=== PATIENT | male | born 1945 | race Caucasian/White ===

== ENCOUNTER 2021-09-17 16:03 | Inpatient (IN) | payer OTHER ==
[~2021-09-17] VITALS: Ht 170.2 cm; Wt 109.5 kg
[~2021-09-17 16:03] MED LIST: ASPI325; ATEN25; CHRO200; FISH1000; GEMF600; GLIP10; LISI20; METF500; MULVITMIND; VERA240ERA
[2021-09-17] MEDS ORDERED: ALBU90OI INH (17:32)
[2021-09-17] MEDS ORDERED: THERA-D2000 UNIT PO (17:33)
[2021-09-17] MEDS ORDERED: B-121000 MC3 PO (17:33)
[2021-09-17] MEDS ORDERED: HYDCHL25 PO (17:34)
[2021-09-17] MEDS ORDERED: NOVOLOG FL100 UNIT/3 SC (17:35)
[2021-09-17] MEDS ORDERED: NOVOLIN N100 UNIT/2 SC (17:36)
[2021-09-17] MEDS ORDERED: LEVSOD25 PO (17:37)
[2021-09-17] MEDS ORDERED: Prinivil10 MG PO (17:37)
[2021-09-17] MEDS ORDERED: METF500 PO (17:38)
[2021-09-17] MEDS ORDERED: ROSU10TA PO (17:41)
[2021-09-17] MEDS ORDERED: STIOLTO RESPIMAT4 G1 PO (17:42)
[2021-09-17] MEDS ORDERED: VERA180ERB PO (17:43)
[2021-09-17] MEDS ORDERED: ASPI325 PO (17:45)
[2021-09-17 18:50] LABS: BASOPHILS ABSOLUTE AUTO 0.04 K/mm3 (0.00-0.23); BASOPHILS PERCENT AUTO 1 % (0-2); EOSINOPHILS ABSOLUTE AUTO 0.32 K/mm3 (0.00-0.68); EOSINOPHILS PERCENT AUTO 4 % (0-6); Hematocrit 26.7 % (37.0-53.0); Hemoglobin 7.4 g/dL (13.5-17.5); IMMATURE GRAN ABSOLUTE AUTO 0.04 K/mm3 (0.00-0.10); IMMATURE GRAN PERCENT AUTO 1 % (0-1); LYMPHOCYTES ABSOLUTE AUTO 1.14 K/mm3 (0.84-5.20); LYMPHOCYTES PERCENT AUTO 14 % (21-46); MONOCYTES ABSOLUTE AUTO 0.53 K/mm3 (0.16-1.47); MONOCYTES PERCENT AUTO 6 % (4-13); Mean Corpuscular HGB 21.9 pg (26.0-34.0); Mean Corpuscular HGB Conc 27.7 g/dL (31.5-36.5); Mean Corpuscular Volume 79 fL (80-100); Mean Platelet Volume 9.5 fL (9.1-12.4); NEUTROPHILS PERCENT AUTO 75 % (41-73); NRBC ABSOLUTE 0.02 K/mm3 (0.00-0.02); NRBC Auto 0.2 /100 WBC (0.0-0.2); Platelet Count 256 K/mm3 (150-400); RDW Coefficient Variation 21.2 % (11.7-14.2); RDW Standard Deviation 60.8 fL (35.1-46.3); Red Blood Cell Count 3.38 M/mm3 (4.30-5.90); White Blood Cell Count 8.27 K/mm3 (4.00-11.30)
[2021-09-17 18:59] LABS: Alanine Aminotransfer (ALT/SGP 30 U/L (12-78); Albumin, Blood 3.4 g/dL (3.4-5.0); Albumin/Globulin Ratio 0.9 (0.8-1.8); Alk Phos 69 U/L (50-136); Anion Gap 1 mmol/L (6-16); Aspartate Aminotrans (AST/SGOT 32 U/L (12-37); Bilirubin, Total 0.6 mg/dL (0.1-1.0); Blood Urea Nitrogen 14 mg/dL (8-24); CO2, Blood 34 mmol/L (21-32); Calcium, Blood 8.9 mg/dL (8.5-10.1); Chloride, Blood 103 mmol/L (98-108); Creatinine, Blood 0.78 mg/dL (0.60-1.20); Globulin, Blood 3.6 g/dL (2.2-4.0); Glomerular Filtration Rate >60 (60-); Glucose, Blood 124 mg/dL (70-99); Potassium, Blood 4.7 mmol/L (3.5-5.5); Sodium, Blood 138 mmol/L (136-145); Troponin I <0.015 ng/mL (0.000-0.040)
[2021-09-18 00:10] LABS: Ferritin, Serum 12 ng/mL (26-388); Iron Serum 28 ug/dL (65-175); Percent Saturation 6.4 % (20.0-50.0); Total Iron Binding Capacity 439 ug/dL (250-450)
[2021-09-18 05:16] LABS: BASOPHILS ABSOLUTE AUTO 0.07 K/mm3 (0.00-0.23); BASOPHILS PERCENT AUTO 1 % (0-2); EOSINOPHILS ABSOLUTE AUTO 0.47 K/mm3 (0.00-0.68); EOSINOPHILS PERCENT AUTO 4 % (0-6); Hematocrit 27.1 % (37.0-53.0); Hemoglobin 7.7 g/dL (13.5-17.5); IMMATURE GRAN ABSOLUTE AUTO 0.04 K/mm3 (0.00-0.10); IMMATURE GRAN PERCENT AUTO 0 % (0-1); LYMPHOCYTES ABSOLUTE AUTO 1.19 K/mm3 (0.84-5.20); LYMPHOCYTES PERCENT AUTO 11 % (21-46); MONOCYTES ABSOLUTE AUTO 0.77 K/mm3 (0.16-1.47); MONOCYTES PERCENT AUTO 7 % (4-13); Mean Corpuscular HGB 22.3 pg (26.0-34.0); Mean Corpuscular HGB Conc 28.4 g/dL (31.5-36.5); Mean Corpuscular Volume 79 fL (80-100); NEUTROPHILS ABSOLUTE AUTO 8.44 K/mm3 (1.96-9.15); NEUTROPHILS PERCENT AUTO 77 % (41-73); NRBC ABSOLUTE 0.05 K/mm3 (0.00-0.02); NRBC Auto 0.5 /100 WBC (0.0-0.2); Platelet Count 254 K/mm3 (150-400); RDW Coefficient Variation 21.1 % (11.7-14.2); RDW Standard Deviation 59.6 fL (35.1-46.3); Red Blood Cell Count 3.45 M/mm3 (4.30-5.90); White Blood Cell Count 10.98 K/mm3 (4.00-11.30)
[2021-09-18 06:33] LABS: Anion Gap 5 mmol/L (6-16); Blood Urea Nitrogen 17 mg/dL (8-24); Bun/Creatinine Ratio 16.2 (12.0-20.0); CO2, Blood 35 mmol/L (21-32); Calcium, Blood 8.8 mg/dL (8.5-10.1); Chloride, Blood 98 mmol/L (98-108); Creatinine, Blood 1.05 mg/dL (0.60-1.20); Glomerular Filtration Rate >60 (60-); Glucose, Blood 132 mg/dL (70-99); Potassium, Blood 4.8 mmol/L (3.5-5.5); Sodium, Blood 138 mmol/L (136-145)
--- NOTE | 2021-09-18 12:30 | NUR ---
Echocardiogram completed.
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
--- NOTE | 2021-09-18 18:32 | NUR ---
SHIFT SUMMARY: NO ACUTE CHANGES. PATIENT SITTING ON EDGE OF BED. REMAINS IN SINUS RHYTHM WITH HR IN THE 70'S. SOB WITH EXERTION AND MOVEMENT. DENIES NEEDS/PAINS. VITAL SIGNS REMAIN STABLE. PLAN TO DC TOMORROW. CALL LIGHT IN REACH.
--- NOTE | 2021-09-18 21:43 | NUR ---
ASSUMED CARE OF PATIENT AT APPROXIMATELY 1910 FROM MARIANNE Viera RN. PATIENT ALERT AND ORIENTED X4; SITTING ON SIDE OF BED DURING BEDSIDE REPORT; INDEPENDENT IN ROOM PER REPORT. PATIENT DENIES PAIN, NUMBNESS, TINGLING, DIZZINESS AND NAUSEA. SR ON TELE; OXYGEN SATURATION ABOVE 90% ON ROOM AIR. DIURESING PATIENT; USES URINAL BEDSIDE. PATIENT REPORTS FEET FELT TIGHT BUT FEELING BETTER. PATIENT ALSO REPORT ABDOMEN NOT USUALLY THIS FIRM. PIV S/L.
--- NOTE | 2021-09-19 06:18 | NUR ---
PATIENT SLEPT A FEW HOURS LAST NIGHT; SITTING UP ON THE SIDE OF THE BED MOST OF THE NIGHT; REFUSED RECLINER. PATIENT STATES HE CANNOT LAY FLAT FOR LONG. NO OTHER ACUTE CHANGES. PATIENT WEIGHED ON STANDING SCALE. NO OTHER ACUTE CHANGES.
--- NOTE | 2021-09-19 08:25 | NUR ---
PATIENT ALERT AND ORIENTED X4. NEURO WNL. TELE SHOWING SINUS RHYTHM WITH HR 80-90'S. DENIES CHEST PAIN. ON ROOM AIR. SOB WHEN LAYNIG DOWN. MODERATE EDEMA BILATERAL LOWER LEGS. DENIES OVERALL PAIN. ABDOMEN DISTENDED AND FIRM. USING URINAL. STRICT I AND O. DR. BENJAMIN IN THIS AM TO SEE PATIENT. NEW ORDERS FOR LASIX. EATING WELL. CALL LIGHT IN REACH.
[2021-09-19] MEDS ORDERED: POTA10T PO (09:58)
[2021-09-19] MEDS ORDERED: PROBIOTIC1 EA13 PO (09:59)
[2021-09-19] MEDS ORDERED: AZIT250 PO (10:04)
[2021-09-19] MEDS ORDERED: AMOX-CLAV ER 11 EAC1 PO (10:06)
[2021-09-19] MEDS ORDERED: FURO20 PO (10:07)
[2021-09-19] MEDS ORDERED: TRAZ50 PO (10:09)
[2021-09-19] MEDS ORDERED: XARELTO20 MG PO (10:10)
[2021-09-19] MEDS ORDERED: METO50 PO (10:12)
[2021-09-19] MEDS ORDERED: FERSU300 PO (10:13)
--- NOTE | 2021-09-19 12:07 | NUR ---
DISCHARGE: NO ACUTE CHANGES. PATIENT VITAL SIGNS STABLE. DR. BENJAMIN IN TO SEE PATIENT THIS AM. PO LASIX DOSE GIVEN. DISCHARGE INSTRUCTIONS REVIEWED AND QUESTIONS ANSWERED. ALL NEW MEDICATIONS REVIEWED. DISCHARGE WNL. PATIENT LEFT UNIT VIA WHEELCHAIR WITH ALL PERSONAL BELONGINGS.
== END 2021-09-19 11:39 | disposition home or self-care (01) | DRG 308 ==
LOC: ER 16:03 → ERHOLD 23:39 → ER 23:39 → PCU 09-18 11:02
PROVIDERS: Emergency Medicine; ADMIT Internal Medicine
DX: I48.91 Unspecified atrial fibrillation (principal); J18.9 Pneumonia, unspecified organism; I50.32 Chronic diastolic (congestive) heart failure; J44.9 Chronic obstructive pulmonary disease, unspecified; E03.9 Hypothyroidism, unspecified; E11.9 Type 2 diabetes mellitus without complications; E78.5 Hyperlipidemia, unspecified; I25.10 Atherosclerotic heart disease of native coronary artery without angina pectoris; E53.8 Deficiency of other specified B group vitamins; Z88.8 Allergy status to other drugs, medicaments and biological substances; I25.2 Old myocardial infarction; D63.8 Anemia in other chronic diseases classified elsewhere; Z79.82 Long term (current) use of aspirin; Z79.4 Long term (current) use of insulin; Z79.899 Other long term (current) drug therapy; E16.2 Hypoglycemia, unspecified; I11.0 Hypertensive heart disease with heart failure
CPT/HCPCS: 36415; 71045; 71260; 80048; 80053; 82607; 82728; 82947; 83540; 83550; 83880; 84145; 84443; 84484; 85025; 85379; 93005; 93010; 93306; 94640; 94760; 96374; 96375; 96376; 99285-25; A9270; J1815; J1940; Q9967

== ENCOUNTER 2021-09-30 11:17 | Inpatient (IN) | payer OTHER ==
[~2021-09-30] VITALS: Ht 177.8 cm; Wt 111.3 kg
[~2021-09-30 11:17] MED LIST changes: +ALBU90OI INH; +AMOX-CLAV ER 11 EAC1 PO; +ASPI325 PO; +AZIT250 PO; +B-121000 MC3 PO; +FERSU300 PO; +FURO20 PO; +HYDCHL25 PO; +LEVSOD25 PO; +METF500 PO; +METO50 PO; +NOVOLIN N100 UNIT/2 SC; +NOVOLOG FL100 UNIT/3 SC; +POTA10T PO; +PROBIOTIC1 EA13 PO; +Prinivil10 MG PO; +ROSU10TA PO; +STIOLTO RESPIMAT4 G1 PO; +THERA-D2000 UNIT PO; +TRAZ50 PO; +VERA180ERB PO; +XARELTO20 MG PO
[2021-09-30 11:48] LABS: BASOPHILS ABSOLUTE AUTO 0.05 K/mm3 (0.00-0.23); BASOPHILS PERCENT AUTO 1 % (0-2); EOSINOPHILS ABSOLUTE AUTO 0.32 K/mm3 (0.00-0.68); EOSINOPHILS PERCENT AUTO 4 % (0-6); Hematocrit 24.4 % (37.0-53.0); Hemoglobin 6.7 g/dL (13.5-17.5); IMMATURE GRAN ABSOLUTE AUTO 0.04 K/mm3 (0.00-0.10); IMMATURE GRAN PERCENT AUTO 1 % (0-1); LYMPHOCYTES ABSOLUTE AUTO 1.09 K/mm3 (0.84-5.20); LYMPHOCYTES PERCENT AUTO 13 % (21-46); MONOCYTES ABSOLUTE AUTO 0.47 K/mm3 (0.16-1.47); MONOCYTES PERCENT AUTO 5 % (4-13); Mean Corpuscular HGB 23.6 pg (26.0-34.0); Mean Corpuscular HGB Conc 27.5 g/dL (31.5-36.5); Mean Corpuscular Volume 86 fL (80-100); Mean Platelet Volume 9.6 fL (9.1-12.4); NEUTROPHILS ABSOLUTE AUTO 6.66 K/mm3 (1.96-9.15); NEUTROPHILS PERCENT AUTO 77 % (41-73); NRBC ABSOLUTE 0.03 K/mm3 (0.00-0.02); NRBC Auto 0.3 /100 WBC (0.0-0.2); Platelet Count 237 K/mm3 (150-400); RDW Coefficient Variation 27.8 % (11.7-14.2); Red Blood Cell Count 2.84 M/mm3 (4.30-5.90); White Blood Cell Count 8.63 K/mm3 (4.00-11.30)
[2021-09-30 11:58] LABS: Alanine Aminotransfer (ALT/SGP 30 U/L (12-78); Albumin/Globulin Ratio 0.9 (0.8-1.8); Alk Phos 60 U/L (50-136); Anion Gap 3 mmol/L (6-16); Aspartate Aminotrans (AST/SGOT 26 U/L (12-37); Bilirubin, Total 0.6 mg/dL (0.1-1.0); Blood Urea Nitrogen 26 mg/dL (8-24); Bun/Creatinine Ratio 28.9 (12.0-20.0); CO2, Blood 32 mmol/L (21-32); Calcium, Blood 8.8 mg/dL (8.5-10.1); Chloride, Blood 105 mmol/L (98-108); Globulin, Blood 3.4 g/dL (2.2-4.0); Glomerular Filtration Rate >60 (60-); Glucose, Blood 113 mg/dL (70-99); Potassium, Blood 4.6 mmol/L (3.5-5.5); Sodium, Blood 140 mmol/L (136-145); Total Protein, Blood 6.4 g/dL (6.4-8.2); Troponin I 0.054 ng/mL (0.000-0.040)
--- NOTE | 2021-09-30 18:54 | NUR ---
SHIFT SUMMARY: ASSUMED CARE OF PT AT 1842. REPORT RECEIVED FROM MARK CASAS. PT ARRIVED TO ROOM WITH PRBC'S FINISHED INFUSING 270CC. PT A/O STANDBY ASSIST, PLEASANT AND COOPERATIVE. NO S/S OF DISTRESS. ABLE TO ANSWER QUESTIONS. NO S/S OF SOB. PT ORIENTED TO ROOM, CALL LIGHT. BED IN LOW POSITION AND BED ALARM ON.
[2021-10-01 05:14] LABS: Hematocrit 28.2 % (37.0-53.0); Hemoglobin 8.2 g/dL (13.5-17.5); Mean Corpuscular HGB 24.6 pg (26.0-34.0); Mean Corpuscular HGB Conc 29.1 g/dL (31.5-36.5); Mean Corpuscular Volume 84 fL (80-100); Mean Platelet Volume 9.1 fL (9.1-12.4); NRBC ABSOLUTE 0.02 K/mm3 (0.00-0.02); NRBC Auto 0.2 /100 WBC (0.0-0.2); Platelet Count 211 K/mm3 (150-400); RDW Coefficient Variation 25.5 % (11.7-14.2); RDW Standard Deviation 76.2 fL (35.1-46.3); Red Blood Cell Count 3.34 M/mm3 (4.30-5.90); White Blood Cell Count 8.84 K/mm3 (4.00-11.30)
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
[2021-10-01 06:11] LABS: Anion Gap 8 mmol/L (6-16); Blood Urea Nitrogen 20 mg/dL (8-24); Bun/Creatinine Ratio 24.3 (12.0-20.0); CO2, Blood 29 mmol/L (21-32); Calcium, Blood 8.4 mg/dL (8.5-10.1); Chloride, Blood 103 mmol/L (98-108); Creatinine, Blood 0.82 mg/dL (0.60-1.20); Glomerular Filtration Rate >60 (60-); Glucose, Blood 143 mg/dL (70-99); Potassium, Blood 4.2 mmol/L (3.5-5.5); Sodium, Blood 140 mmol/L (136-145)
[2021-10-01] MEDS ORDERED: ASCO500 PO (08:45)
[2021-10-01] MEDS ORDERED: CALCIUM 500 MG1 EAC2 PO (08:46)
[2021-10-01] MEDS ORDERED: FISH OIL PO (08:47)
[2021-10-01] MEDS ORDERED: HUMULIN N100 UNIT/3 SC ×2 (08:51→08:52)
[2021-10-01] MEDS ORDERED: MULVITA PO (08:53)
--- NOTE | 2021-10-01 09:13 | NUR ---
PT HEART RATE HAS SUSTAINED 130S PER TELETECH YUE. CALLED DR TWICE WITH NO ANSWER. WILL TRY AGAIN IN TEN MIN.
--- NOTE | 2021-10-01 16:14 | NUR ---
SHIFT SUMMARY PATIENT IS ALERT AND ORIENTED X4. PATIENT IS ABLE TO MAKE NEEDS KNOWN. THIS RN CALLED IN A SURGICAL CONSULT FOR ABDOMEN WOUND THAT IS SLOWLY OOZING BLOODY EXUDENT. DRESSING FOR WOUND HAS BEEN CHANGED ONCE THIS SHIFT. PATIENT HAS HAD HEART RATE ELEVATED MOST OF SHIFT. PATIENT HAS HAD HOME MEDICATIONS ADDED AND PATIENTS HR HAS EVENED OUT. NO ACUTE EVENTS THIS SHIFT. CALL LIGHT IN PLACE. WILL MONITOR UNTIL SHIFT CHANGE.
--- NOTE | 2021-10-02 04:04 | NUR ---
SHIFT SUMMARY PTIS AA0X4. FULL CODE STATUS. ATTHE BEGINNING OF THE SHIFT. PT WAS AFIB @120HR PER ADVERTISING INSERTER. WAS NOTIFIED. METOPROLOL WAS ORDERED AND GIVEN ORDERED.NO C/O PAIN NOR DISCOMFORT REPORTED. OLD MIDLINE SCAR ON ABDOMEN WAS NOTED WITH INTACT DRESSING.PT IS RESTING COMFORTABLY IN BED NOW ,NO SIGN OF DISTRESS OBSERVED. BED IN LOWER POSITION, CALL LIGHT WITHIN REACH. WILL CONTINUE TO MONITOR.
[2021-10-02 05:03] LABS: Hematocrit 28.8 % (37.0-53.0); Hemoglobin 8.4 g/dL (13.5-17.5); Mean Corpuscular HGB 24.8 pg (26.0-34.0); Mean Corpuscular HGB Conc 29.2 g/dL (31.5-36.5); Mean Corpuscular Volume 85 fL (80-100); Mean Platelet Volume 9.3 fL (9.1-12.4); NRBC ABSOLUTE 0.02 K/mm3 (0.00-0.02); NRBC Auto 0.2 /100 WBC (0.0-0.2); Platelet Count 219 K/mm3 (150-400); RDW Coefficient Variation 26.1 % (11.7-14.2); RDW Standard Deviation 80.6 fL (35.1-46.3); Red Blood Cell Count 3.39 M/mm3 (4.30-5.90); White Blood Cell Count 8.96 K/mm3 (4.00-11.30)
[2021-10-02 06:25] LABS: Anion Gap 7 mmol/L (6-16); Blood Urea Nitrogen 16 mg/dL (8-24); Bun/Creatinine Ratio 19.5 (12.0-20.0); CO2, Blood 32 mmol/L (21-32); Calcium, Blood 8.6 mg/dL (8.5-10.1); Chloride, Blood 101 mmol/L (98-108); Creatinine, Blood 0.82 mg/dL (0.60-1.20); Glomerular Filtration Rate >60 (60-); Glucose, Blood 131 mg/dL (70-99); Sodium, Blood 140 mmol/L (136-145)
--- NOTE | 2021-10-02 17:52 | NUR ---
SHIFT SUMMARY PATIENT IS ALERT AND ORIENTATED X4. PATIENT HAS BEEN PLEASENT AND COOPERATIVE THIS SHIFT. NO COMPLAINTS OF PAIN, SOB, NAUSEA OR VOMITTING THIS SHIFT. NO ACUTE EVENTS THIS SHIFT. PATIENTS HR HAS BEEN ELEVATED, PATIENT HAS PRN MEDICATION FOR HR ELEVATION AND HAS MAINTAINED LOWER HR SINCE GIVEN. VITAL SIGNS REVIEWED. CALL LIGHT IN PLACE. WILL MONITOR UNTIL SHIFT CHANGE.
--- NOTE | 2021-10-03 04:01 | NUR ---
SHIFT SUMMARY NO ACUTE EVENTS THROUGH THE NIGHT . PT IS AWAKE AND AKERT X4.NO COMPLAINT OF PAIN OR SOB.ALL MEDS GIVEN PER EMAR. VS REVIEWED. PT IS RESTING AT THIS TIME. BED IN LOWER POSITION, CALL LIGHT WITHIN REACH. WILL CONTINUE TO MONITOR.
[2021-10-03 04:53] LABS: BASOPHILS ABSOLUTE AUTO 0.06 K/mm3 (0.00-0.23); BASOPHILS PERCENT AUTO 1 % (0-2); EOSINOPHILS ABSOLUTE AUTO 0.48 K/mm3 (0.00-0.68); EOSINOPHILS PERCENT AUTO 6 % (0-6); Hematocrit 30.4 % (37.0-53.0); Hemoglobin 8.7 g/dL (13.5-17.5); IMMATURE GRAN ABSOLUTE AUTO 0.03 K/mm3 (0.00-0.10); IMMATURE GRAN PERCENT AUTO 0 % (0-1); LYMPHOCYTES PERCENT AUTO 12 % (21-46); MONOCYTES ABSOLUTE AUTO 0.54 K/mm3 (0.16-1.47); MONOCYTES PERCENT AUTO 7 % (4-13); Mean Corpuscular HGB 24.7 pg (26.0-34.0); Mean Corpuscular HGB Conc 28.6 g/dL (31.5-36.5); Mean Corpuscular Volume 86 fL (80-100); Mean Platelet Volume 9.5 fL (9.1-12.4); NEUTROPHILS ABSOLUTE AUTO 6.09 K/mm3 (1.96-9.15); NEUTROPHILS PERCENT AUTO 74 % (41-73); NRBC ABSOLUTE 0.03 K/mm3 (0.00-0.02); NRBC Auto 0.4 /100 WBC (0.0-0.2); Platelet Count 246 K/mm3 (150-400); RDW Coefficient Variation 26.6 % (11.7-14.2); RDW Standard Deviation 82.2 fL (35.1-46.3); Red Blood Cell Count 3.52 M/mm3 (4.30-5.90)
[2021-10-03 06:24] LABS: Anion Gap 5 mmol/L (6-16); Blood Urea Nitrogen 15 mg/dL (8-24); CO2, Blood 33 mmol/L (21-32); Calcium, Blood 8.7 mg/dL (8.5-10.1); Chloride, Blood 102 mmol/L (98-108); Creatinine, Blood 0.83 mg/dL (0.60-1.20); Glomerular Filtration Rate >60 (60-); Glucose, Blood 120 mg/dL (70-99); Potassium, Blood 4.1 mmol/L (3.5-5.5); Sodium, Blood 140 mmol/L (136-145)
--- NOTE | 2021-10-03 17:42 | NUR ---
PATIENT IS ALERT AND ORIENTED AND COOPERATIVE WITH CARE. INDEPENDENT IN THE ROOM. CARDIOLOGY CONSULTED TODAY. NO BLEEDING FROM ABDOMINAL WOUND. WILL CONTINUE TO MONITOR
--- NOTE | 2021-10-04 04:27 | NUR ---
SHIFT SUMMARY PT IS AWAKE AND ALERT X4 .PT IS COOPERATIVE WITH CARE. DURING THE NIGHT, CALL RECEIVED FROM TELE Placed ,PT WAS AFIB @HR 139.MD WAS NOTIFIED AND ONE DOSE OF VERAPAMIL WAS GIVEN ORDERED.DRESSING ON ABDOMEN INTACT, NO BLEEDING NOTED.PT IS RESTING COMFORTABLY AT HIS TIME, NO SIGN OF DISTRESS NOTED. BED IN LOWER POSITION,CALL LIGHT IN EASY REACH. WILL CONTINUE TO MONITOR.
--- NOTE | 2021-10-04 14:07 | NUR ---
TELE PT TELE READING HAS BEEN FLUCTUATING AFIB/AFLUTTER 110's TO 130's THIS SHIFT. PT DENIES ANY CP/SOB/PRESSURE. BP STABLE. DR. MAJOR NOTIFIED. VERBAL ORDERS NOTED. AT APPROX 1350 PT TELE READING AT AFIB AT 87 BPM, PT DENIES CP OR ANY DISCOMFORT. NOTIFIED DR. MAJOR, NO FURTHER ORDERS NOTED.
--- NOTE | 2021-10-04 18:07 | NUR ---
SHIFT SUMMARY PT IS AAOX4, ABLE TO MAKE NEEDS KNOWN. PLEASANT AND COOPERATIVE TO CARE. NO C/O PAIN OR ANY DISCOMFORT THIS SHIFT. PT IS IND IN ROOM, CALLS APPROPRIATELY FOR ASSISTANCE. BED AT LOWEST POSITION. CALL LIGHT WITHIN REACH.
--- NOTE | 2021-10-04 18:45 | NUR ---
TELE THIS RN WAS NOTIFIED BY [employer] STAFF THAT PT HAS BEEN SUSTAINING AFLUTTER 130's SINCE 1830. PT DENIES CP, SOB, OR PRESSURE. DENIES DIZZINESS OR ANY OTHER DISCOMFORT. PT LAYING COMFORTABLY IN BED AT THIS TIME. BP: 123/69 P: [address] MAJOR VIA PHONE CALL. NO FUTHER ORDERS NOTED. WILL NOTIFY PM SHIFT RN DURING BSR.
--- NOTE | 2021-10-05 04:46 | NUR ---
SHIFT SUMMARY PT IS AWAKE AND ALERT X4. PT IS COOPERATIVE TO CARE .RECEIVED A CALL AT THE BEGINNING OF THE SHIFT FROM TELE MONITOR REGARDING PT'S HR SUSTAINING OVER 120. MD WAS NOTIFIED AND 120MG VERAPAMIL ONE TIME WAS ORDERED AND GIVEN. PT IS ASYMPTOMATIC. HR IS BEEN SLOWING DOWN.ASPER BUILDING STONECUTTER HR IS 100 NOW.PT IS RESTING COMFORTABLY AT THIS TIME.BED IN LOWER POSITION AND CALL LIGHT IN REACH. WILL CONTINUE TO MONITOR.
[2021-10-05] MEDS ORDERED: FURO40 PO (09:49)
[2021-10-05] MEDS ORDERED: PANT40 PO (09:50)
[2021-10-05] MEDS ORDERED: POTA10T PO (09:50)
--- NOTE | 2021-10-05 16:08 | NUR ---
DISCHARGE HOME NOTE PATIENT IS AAOX4 AND AMBULATORY WITH NO ISSUES. VSS. NAD NOTED. VSS. NAD NOTED. IV REMOVED FROM RIGHT HAND AND BANDAIDE APPLIED. ACTIVITY ACTIVE AND NO RESTRICTIONS. NO C/O PAIN, SOB, N/V, OR DISCOMFORT VOICED. DISCHARGE PAPERS EXPLAINED AND QUESTIONS ANSWERED. ESCORTED OFF UNIT PER CUSTOMER RESPONSE REPRESENTATIVE VIA WHEELCHAIR AND TAKEN TO PARKING LOT TO HIS CAR.
== END 2021-10-05 13:43 | disposition home or self-care (01) | DRG 812 ==
LOC: ER 11:17 → MEDS 11:18 → ERHOLD 11:18 → ER 15:44 → MEDS 15:44 → ERHOLD 15:44 → MEDS 15:44 → ERHOLD 18:50 → MEDS 18:50
PROVIDERS: Emergency Medicine; Internal Medicine; ADMIT Internal Medicine
PROC: 30233N1 Transfusion of Nonautologous Red Blood Cells into Peripheral Vein, Percutaneous Approach (ICD-10-PCS; principal; 2021-10-04)
DX: D62 Acute posthemorrhagic anemia (principal); I50.32 Chronic diastolic (congestive) heart failure; I48.92 Unspecified atrial flutter; I48.20 Chronic atrial fibrillation, unspecified; S31.139A Puncture wound of abdominal wall without foreign body, unspecified quadrant without penetration into peritoneal cavity, initial encounter; I10 Essential (primary) hypertension; H44.9 Unspecified disorder of globe; E03.9 Hypothyroidism, unspecified; I11.0 Hypertensive heart disease with heart failure; E11.9 Type 2 diabetes mellitus without complications; J44.9 Chronic obstructive pulmonary disease, unspecified; E78.5 Hyperlipidemia, unspecified; I25.2 Old myocardial infarction; I25.10 Atherosclerotic heart disease of native coronary artery without angina pectoris; Z98.890 Other specified postprocedural states; Z88.8 Allergy status to other drugs, medicaments and biological substances; Z79.4 Long term (current) use of insulin; Z79.899 Other long term (current) drug therapy; Z79.82 Long term (current) use of aspirin; X58.XXXA Exposure to other specified factors, initial encounter
CPT/HCPCS: 36415; 36430; 71045; 80048; 80053; 82272; 82947; 83880; 84484; 85025; 85027; 86850; 86900; 86901; 86923; 93005; 93010; 94640; 94760; 96365; 96366; 96375; 99285-25; A9270; C9113; G0378; J1815; J1940; J2916; J7030; P9016

== ENCOUNTER 2021-10-14 12:14 | Inpatient (IN) | payer OTHER ==
[~2021-10-14] VITALS: Ht 167.6 cm; Wt 107.1 kg
[~2021-10-14 12:14] MED LIST changes: +ASCO500 PO; +CALCIUM 500 MG1 EAC2 PO; +FISH OIL PO; +FURO40 PO; +HUMULIN N100 UNIT/3 SC; +MULVITA PO; +PANT40 PO
[2021-10-14 13:30] LABS: BASOPHILS ABSOLUTE AUTO 0.09 K/mm3 (0.00-0.23); BASOPHILS PERCENT AUTO 1 % (0-2); EOSINOPHILS ABSOLUTE AUTO 0.22 K/mm3 (0.00-0.68); EOSINOPHILS PERCENT AUTO 2 % (0-6); Hematocrit 32.2 % (37.0-53.0); Hemoglobin 9.1 g/dL (13.5-17.5); IMMATURE GRAN ABSOLUTE AUTO 0.05 K/mm3 (0.00-0.10); IMMATURE GRAN PERCENT AUTO 1 % (0-1); LYMPHOCYTES ABSOLUTE AUTO 0.73 K/mm3 (0.84-5.20); LYMPHOCYTES PERCENT AUTO 7 % (21-46); MONOCYTES ABSOLUTE AUTO 0.67 K/mm3 (0.16-1.47); MONOCYTES PERCENT AUTO 7 % (4-13); Mean Corpuscular HGB 25.6 pg (26.0-34.0); Mean Corpuscular HGB Conc 28.3 g/dL (31.5-36.5); Mean Corpuscular Volume 90 fL (80-100); Mean Platelet Volume 9.6 fL (9.1-12.4); NEUTROPHILS ABSOLUTE AUTO 8.13 K/mm3 (1.96-9.15); NEUTROPHILS PERCENT AUTO 82 % (41-73); NRBC ABSOLUTE 0.02 K/mm3 (0.00-0.02); NRBC Auto 0.2 /100 WBC (0.0-0.2); Platelet Count 266 K/mm3 (150-400); RDW Coefficient Variation 26.3 % (11.7-14.2); RDW Standard Deviation 87.8 fL (35.1-46.3); Red Blood Cell Count 3.56 M/mm3 (4.30-5.90); White Blood Cell Count 9.89 K/mm3 (4.00-11.30)
[2021-10-14 13:45] LABS: Calcium, Ionized (POC) 1.26 mmol/L (1.10-1.46); Chloride (POC) 98 mmol/L (98-108); Creatinine (POC) 1.6 mg/dL (0.8-1.3); Glucose (ISTAT POC) 137 mg/dL (70-99); Hemoglobin (POC) 10.9 g/dL (13.5-17.5); Potassium (POC) 6.2 mmol/L (3.5-5.5); Sodium (POC) 138 mmol/L (135-148); Total CO2 (POC) 30 mmol/L (21-32)
[2021-10-14 14:04] LABS: Alanine Aminotransfer (ALT/SGP 36 U/L (12-78); Albumin, Blood 3.3 g/dL (3.4-5.0); Albumin/Globulin Ratio 0.8 (0.8-1.8); Alk Phos 98 U/L (50-136); Anion Gap 5 mmol/L (6-16); Aspartate Aminotrans (AST/SGOT 27 U/L (12-37); Bilirubin, Direct 0.2 mg/dL (0.0-0.3); Bilirubin, Indirect 0.5 mg/dL (0.1-0.7); Bilirubin, Total 0.7 mg/dL (0.1-1.0); Blood Urea Nitrogen 42 mg/dL (8-24); Bun/Creatinine Ratio 28.6 (12.0-20.0); CO2, Blood 28 mmol/L (21-32); Calcium, Blood 8.9 mg/dL (8.5-10.1); Chloride, Blood 103 mmol/L (98-108); Creatinine, Blood 1.47 mg/dL (0.60-1.20); Globulin, Blood 4.1 g/dL (2.2-4.0); Glomerular Filtration Rate 46 (60-); Glucose, Blood 148 mg/dL (70-99); Magnesium, Blood 2.3 mg/dL (1.6-2.4); Sodium, Blood 136 mmol/L (136-145); Total Protein, Blood 7.4 g/dL (6.4-8.2); Troponin I <0.015 ng/mL (0.000-0.040)
[2021-10-14 14:08] LABS: Potassium, Blood 6.3 mmol/L (3.5-5.5)
[2021-10-14 14:54] LABS: Influenza A, PCR NEGATIVE (NEGATIVE); Influenza B, PCR NEGATIVE (NEGATIVE); Resp Syncytial Virus, PCR NEGATIVE (NEGATIVE); SARS-Cov-2 (COVID-19) PCR, MMC NEGATIVE (NEGATIVE)
[2021-10-14 15:43] LABS: pH Blood Venous 7.19 (7.34-7.37)
[2021-10-14 15:44] LABS: Base Excess Venous 2.9 mmol/L; Bicarbonate Venous 25.8 mmol/L (24.0-30.0); PCO2 Venous 81.9 mmHg (38-42)
[2021-10-14 16:00] LABS: Calcium, Ionized (POC) 1.25 mmol/L (1.10-1.46); Chloride (POC) 98 mmol/L (98-108); Creatinine (POC) 1.6 mg/dL (0.8-1.3); Glucose (ISTAT POC) 211 mg/dL (70-99); Hemoglobin (POC) 11.2 g/dL (13.5-17.5); Potassium (POC) 5.9 mmol/L (3.5-5.5); Sodium (POC) 136 mmol/L (135-148); Total CO2 (POC) 33 mmol/L (21-32)
[2021-10-14 18:14] LABS: PO2 Arterial 76.5 mmHg (80-100)
[2021-10-14 18:15] LABS: PCO2 Arterial 71 mmHg (35-45); pH Blood Arterial 7.24 (7.35-7.45)
[2021-10-14 23:08] LABS: Source, Urine Catheter
[2021-10-14 23:16] LABS: Bilirubin, Urine Neg (Neg); Blood, Urine Neg (Neg); Glucose Qualitative, Urine Neg (Neg); Ketones, Urine Neg (Neg); Leukocyte Esterase, Urine Neg (Neg); Nitrite, Urine Neg (Neg); Protein, Urine 2+ (Neg); Urobilinogen, Urine NORM (Normal)
[2021-10-14 23:19] LABS: Bun/Creatinine Ratio 36.2 (12.0-20.0); Calcium, Blood 8.8 mg/dL (8.5-10.1); Creatinine, Blood 1.3 mg/dL (0.60-1.20); Potassium, Blood 5.9 mmol/L (3.5-5.5)
[2021-10-14 23:23] LABS: Appearance, Urine Clear (Clear); Color, Urine Yellow (P-Yellow)
[2021-10-14 23:24] LABS: Bacteria Rare /hpf; Red Blood Cells, Urine Not Seen /hpf (0-2); Squamous Epithelial Cells Few /hpf (Few); White Blood Cells, Urine Rare /hpf (0-5)
[2021-10-15 04:13] LABS: BASOPHILS ABSOLUTE AUTO 0.01 K/mm3 (0.00-0.23); BASOPHILS PERCENT AUTO 0 % (0-2); EOSINOPHILS PERCENT AUTO 0 % (0-6); Hematocrit 30.9 % (37.0-53.0); Hemoglobin 8.7 g/dL (13.5-17.5); IMMATURE GRAN ABSOLUTE AUTO 0.01 K/mm3 (0.00-0.10); IMMATURE GRAN PERCENT AUTO 0 % (0-1); LYMPHOCYTES ABSOLUTE AUTO 0.24 K/mm3 (0.84-5.20); LYMPHOCYTES PERCENT AUTO 6 % (21-46); MONOCYTES ABSOLUTE AUTO 0.06 K/mm3 (0.16-1.47); MONOCYTES PERCENT AUTO 1 % (4-13); Mean Corpuscular HGB 25.4 pg (26.0-34.0); Mean Corpuscular HGB Conc 28.2 g/dL (31.5-36.5); Mean Corpuscular Volume 90 fL (80-100); Mean Platelet Volume 9.6 fL (9.1-12.4); NEUTROPHILS ABSOLUTE AUTO 3.98 K/mm3 (1.96-9.15); NEUTROPHILS PERCENT AUTO 93 % (41-73); Platelet Count 193 K/mm3 (150-400); RDW Coefficient Variation 25.6 % (11.7-14.2); RDW Standard Deviation 84.4 fL (35.1-46.3); Red Blood Cell Count 3.43 M/mm3 (4.30-5.90)
[2021-10-15 04:43] LABS: Troponin I <0.015 ng/mL (0.000-0.040)
[2021-10-15 05:03] LABS: Alanine Aminotransfer (ALT/SGP 38 U/L (12-78); Albumin, Blood 3.1 g/dL (3.4-5.0); Albumin/Globulin Ratio 0.9 (0.8-1.8); Alk Phos 99 U/L (50-136); Anion Gap 8 mmol/L (6-16); Aspartate Aminotrans (AST/SGOT 18 U/L (12-37); Bilirubin, Total 0.7 mg/dL (0.1-1.0); Blood Urea Nitrogen 48 mg/dL (8-24); Bun/Creatinine Ratio 37.5 (12.0-20.0); CO2, Blood 28 mmol/L (21-32); Calcium, Blood 8.8 mg/dL (8.5-10.1); Chloride, Blood 100 mmol/L (98-108); Creatinine, Blood 1.28 mg/dL (0.60-1.20); Globulin, Blood 3.6 g/dL (2.2-4.0); Glomerular Filtration Rate 54 (60-); Glucose, Blood 258 mg/dL (70-99); Sodium, Blood 136 mmol/L (136-145); Total Protein, Blood 6.7 g/dL (6.4-8.2)
--- NOTE | 2021-10-15 06:40 | NUR ---
SHIFT SUMMARY PATIENT ADMITTED TO FLOOR AT APPROXIMETLY 2000 AND FOUND TO BE LETHARGIC AND DRIFTING OFF TO SLEEP DURING CONVERSATION FOR A FEW HOURS BUT THEN CAME AROUND AND BECAME MORE ENERGETIC, ORIENTEDX4, FOLLOWING COMMANDS AND OLIVAREZ. UP WITH SBA IN ROOM AND GOOD STRENGTH NOTED. VSS. ON RA SATING LOW 90'S WHEN NOT ON BIPAP WITH FIO2 25%. BIPAP HELPED TACHYPENIA AND SOB AND PATIENT NOW BREATHING WITHOUT ISSUE. DRY COUGH. AFIB IN THE LOW 100'S ON THE TELE MONITOR. HUNG INSERTED FOR STRICT I/OS AND GOOD OUPUT DRAINING TO GRAVITY. TOLERATING ADA DIET. +2 BLE EDEMA. BELLY MILDLY DISTENDED BUT PATIENT STATES NOT UNCOMFORTABLE AND HAD ONE LARGE BM THIS SHIFT. CRITICAL K OF 6.0 AGAIN THIS MORNING ,MD AWARE AND MEDS ORDERED ACCORDINGLY. NO ACUTE CONCERNS AT THIS TIME. WILL CONTINUE PLAN OF CARE UNTIL REPROT GIVEN TO DAY SHIFT RN.
[2021-10-15 08:44] LABS: PO2 Arterial 53.7 mmHg (80-100); pH Blood Arterial 7.37 (7.35-7.45)
[2021-10-15 16:55] LABS: Anion Gap 5 mmol/L (6-16); Blood Urea Nitrogen 49 mg/dL (8-24); Bun/Creatinine Ratio 43.4 (12.0-20.0); CO2, Blood 29 mmol/L (21-32); Chloride, Blood 99 mmol/L (98-108); Creatinine, Blood 1.13 mg/dL (0.60-1.20); Glomerular Filtration Rate >60 (60-); Glucose, Blood 331 mg/dL (70-99); Potassium, Blood 5.8 mmol/L (3.5-5.5); Sodium, Blood 133 mmol/L (136-145)
--- NOTE | 2021-10-15 17:06 | NUR ---
SHIFT SUMMARY PT A&Ox4; CALM AND COOPERATIVE WITH CARE. PT RESTING IN BED DURING SHIFT. APPEARS TO BE SLEEPING INTERMITTENTLY T/O SHIFT. ENCOURAGED PT TO ELEVATED BLE. UP TO BSC WITH 1 PERSON ASSIST. PT DENIES PAIN, CHEST PAIN/PRESSURE, SOB, NAUSEA AND DIZZINESS. PT RECEIVING IV STEROIDS AND LASIX. HUNG PATENT AND DRAINING. PT SPO2 >90% ON RA WHILE AWAKE, PLACED ON 2L O2 VIA NC WHILE SLEEPING. VSS. NO OTHER ACUTE CHANGES NOTED. WILL CONTINUE TO MONITOR UNTIL REPORT GIVEN TO ONCOMING RN.
[2021-10-16 04:44] LABS: Albumin, Blood 3.2 g/dL (3.4-5.0); Anion Gap 6 mmol/L (6-16); Blood Urea Nitrogen 53 mg/dL (8-24); Bun/Creatinine Ratio 49.1 (12.0-20.0); CO2, Blood 30 mmol/L (21-32); Calcium, Blood 9.2 mg/dL (8.5-10.1); Chloride, Blood 99 mmol/L (98-108); Creatinine, Blood 1.08 mg/dL (0.60-1.20); Glomerular Filtration Rate >60 (60-); Glucose, Blood 191 mg/dL (70-99); Magnesium, Blood 2.2 mg/dL (1.6-2.4); Phosphorus, Blood 4.6 mg/dL (2.5-4.9); Potassium, Blood 5.2 mmol/L (3.5-5.5); Sodium, Blood 135 mmol/L (136-145)
--- NOTE | 2021-10-16 06:04 | NUR ---
SHIFT SUMMARY PATIENT IS A PLESANT MAN WHO IS A&OX4 AND UP WITH SBA IN ROOM.DID NOT GT MUCH SLEEP ALL SHIFT. VSS MOST OF SHIFT BUT HR AFIB SLOWLY CREEPING UP AND WAS SUSTAINING IN THE 120'S SO PRN VERAPAMIL PUSH GIVEN WITH LITTLE RELIEF INTO 110'S. ASYMTPOMATIC RESTING IN BED THROUGHOUT. NO PAIN OR DISTRESS. ON RA DURING DAY AND 2L PRN FOR SLEEPING. EX WHEEZES IN UPPER LOBES AND DIM IN LOWER. CHAU. DRY COUGH. GOOD OUPUT FROM HUNG DRAINING TO GRAVITY. TOLERATING ADA DIET. +2BLE EDEMA AND ABDOMINAL EDEMA NOTED BUT SLOWLY IMPROVING. DISTENDED, FIRM TO TOUCH AND TENDER. NO ACUTE CONCERNS AT THIS TIME. WILL CONTINUE PLAN OF CARE UNTIL REPORT GIVEN TO DAYSHIFT RN.
--- NOTE | 2021-10-16 19:48 | NUR ---
END OF HSIFT SUMMARY: PATIENTWAS ACCESSED BY PROVIDERR METOPROLOL WAS SQITCHED BACK TO VERAPAMIL AND BOTH WERE INEFFECTIVE, PATIENT HAS DECREASED AMOUNT OF EDEMA IN THE BLE VERY MINIMALLY, SOME WEEPING ON THE LEFT. SOME MINOR CRACKLES IN THE RLL, HEART RATE HAS BEEN ~125 ALL DAY UNTIL ABOUT 1700 AND INCREASED TO 130'S, EVEN AWHILE PATIENT IS ASLEEP. DENIES CHEST PAIN OR PRESSURE NO NEW SEEPAGE FROM ABD DRESSING. STILL ATRILAL FLUTTER, DIURETICS ARE PULLING MORE FLUID OFF OF PATIENT WITH A SINGLE DUMP OF 1650 THIS EVENING AND MORE THORUGHOUT THE DAY. PATIENT HAS HAD AN INCREASED NEED FOR O2 ESPECIALLY WHILE SLEEPING OR IS LAYING ON BACK. PROVIDER AWARE. WILL INFORM NIGHT RN AND CONTINUE TO MONITOR.
--- NOTE | 2021-10-16 22:58 | NUR ---
ASSUMED CARE OF PATIENT AT START OF SHIFT AND WAS INFORMED BY DAYSHIABBI RN THAT PRN VERAMPAMIL WAS GIVEN OVER AND HOUR PREVIOUSLY WITH NO CHANGE IN HR. REMAINED 133 AND BP STABLE. SCHEDULED ORAL GIVEN WITH NO CHANGE WELL. MD MADE AWARE THAT PRN VERAPAMIL GIVEN WITH NO CHANGE AND THAT PATIENT ALFUTTER 13O BPM. TOLD TO GIVE ANOTHER DOSE OF VERAMPAMIL 5MG AND REASSESS. CURRENTLY AFLUTTER 129, ASYMPTOMATIC RESTING IN BED. VSS. NO OTHER NEW ORDERS AT THIS TIME AND WILL CONTINUE TO MONITOR.
[2021-10-17 05:50] LABS: Albumin, Blood 3.2 g/dL (3.4-5.0); Anion Gap 3 mmol/L (6-16); Blood Urea Nitrogen 46 mg/dL (8-24); Bun/Creatinine Ratio 50.9 (12.0-20.0); CO2, Blood 34 mmol/L (21-32); Calcium, Blood 8.7 mg/dL (8.5-10.1); Chloride, Blood 98 mmol/L (98-108); Glomerular Filtration Rate >60 (60-); Glucose, Blood 213 mg/dL (70-99); Magnesium, Blood 2.1 mg/dL (1.6-2.4); Phosphorus, Blood 4.3 mg/dL (2.5-4.9); Sodium, Blood 135 mmol/L (136-145)
--- NOTE | 2021-10-17 06:07 | NUR ---
SHIFT SUMMARY PATIENT IS A PLEASANT MAN WHO IS A&OX4 WITH SBA IN ROOM. NO PAIN OR DISTRESS NOTED UPON ASSESSMENT. ON 1L O2 WHEN AWAKE BUT DID HAVE TO INCREASE UP TO 7L NC WHEN IN DEEEP SLEEP. REFUSED BREATHING TREATMENT HE STATED HE THOUGHT IT MADE COUGH AND WHEEZING WORSE. AFLUTTER ON THE MONITOR IN THE 120'S. VSS. ASYMPTOMATIC RESTING IN BED. GOOD OUTPUT FROM HUNG DRAINING TO GRAVITY. TOLERATING ADA DIET. +3 BLE PITTING EDEMA WITH SOME WEEPING SLOWLY IMPROVING. FIRM, DISTENDED ABD REMAINS BUT NORMAL BM PATTERN AND APPETITE. NO ACUTE CONCERNS AT THIS TIME. COMFORT CONTINUE PLAN OF CARE UNTIL REPORT GIVEN TO JUAN MANUEL CASAS.
--- NOTE | 2021-10-17 18:02 | NUR ---
SHIFT SUMMARY NO ACUTE EVENTS THIS SHIFT. PT WAS ORIENTED AND COOPERATIVE THIS SHIFT, NAPPED DURING MOST OF SHIFT TODAY. PT WAS ABLE TO REPOSITION SELF IN BED T/O SHIFT, WAS ABLE TO SIT UP AT BEDSIDE WITHOUT ASSISTANCE FOR MEALS. PT ON NASAL CANNULA THIS SHIFT, FROM 3-7L, O2 NEEDS INCREASED WHEN PATIENT WAS ASLEEP. PT'S IN SINUS TACH, 120S FOR MOST OF SHIFT, DISCUSSED WITH DR. GABRIEL. PT DIURESING WELL, HUNG PATENT AND DRAINING TO GRAVITY. PT HAD CHEST PE CT COMPLETED TODAY. WOUND NOTED MIDLINE ON ABDOMEN, NO NEW DRAINAGE NOTED, COVERED WITH DRESSING. PT DENIED PAIN THIS SHIFT. PT HAD BREATHING TREAMENTS THIS SHIFT.
--- NOTE | 2021-10-18 06:00 | NUR ---
SHIFT SUMMARY ASSUMED CARE OF PT AT 1900. PT IS A/OX4. TELE SHOWED SINUS IN THE 90'S. LUNG SOUNDS CLEAR. PT WAS ON 3L NC T/O THE NIGHT. PT WOUND ON ABD HAD SMALL AMOUNT OF DRAINAGE. BANDAGE REPLACED AND WOUND CLEANSED. PT HUNG DRAINIG WITH GRAVITY. NO EVENTS DURING THE NIGHT. CALL LIGHT IN REACH, BED IN LOWEST POSITION.
--- NOTE | 2021-10-18 08:56 | NUR ---
Converted to Afib c RVR- MD notified, instructed to give PRN Verapamil. Will cotninue to monitor.
[2021-10-18 08:58] LABS: Albumin, Blood 3.1 g/dL (3.4-5.0); Anion Gap 4 mmol/L (6-16); Blood Urea Nitrogen 29 mg/dL (8-24); Bun/Creatinine Ratio 36.2 (12.0-20.0); CO2, Blood 40 mmol/L (21-32); Calcium, Blood 9.1 mg/dL (8.5-10.1); Chloride, Blood 94 mmol/L (98-108); Glomerular Filtration Rate >60 (60-); Glucose, Blood 201 mg/dL (70-99); Phosphorus, Blood 3.1 mg/dL (2.5-4.9); Potassium, Blood 4.8 mmol/L (3.5-5.5); Sodium, Blood 138 mmol/L (136-145)
--- NOTE | 2021-10-18 10:27 | NUR ---
Pt remains in Afib c RVR after PRN Verapamil given. Left voicemail for MD, no new orders at this time. Will continue to monitor.
[2021-10-18 17:13] LABS: Digoxin (Lanoxin) 3.16 ug/mL (0.80-2.00)
[2021-10-18 20:03] LABS: Digoxin (Lanoxin) 0.88 ug/mL (0.80-2.00)
--- NOTE | 2021-10-19 00:19 | NUR ---
ASSUMED CARE OF PT AT 1900. A/OX4. MAINTAINS OVER 92% ON 2L NC. LS CLEAR UPPER AND CRACKLES LOWER BL. AFIB AVG 138, DENIES CP/PRESSURE. BLE 2+ PITTING EDEMA WITH 2+ PITTING EDEMA IN THE ABDOMEN WELL. BANDAGE COVERING MIDLINE SCAR THAT IS OPENING FROM THE EDEMA. HUNG DRAINING TO GRAVITY YELLOW/CLEAR URINE. WILL UPDATE CHANGES OCCUR.
--- NOTE | 2021-10-19 23:17 | NUR ---
ASSUMED CARE OF PT AT 1900. A/OX4. MAINTAINS OVER 92% ON 1L NC. LS CLEAR UPPER AND CRACKLES LOWER BL. AFIB AVG 124, DENIES CP/PRESSURE. BLE 2+ PITTING EDEMA WITH 2+ PITTING EDEMA IN THE ABDOMEN WELL. BANDAGE COVERING MIDLINE SCAR THAT IS OPENING FROM THE EDEMA CLEANED AND REDRESSED. HUNG DRAINING TO GRAVITY YELLOW/CLEAR URINE. WILL UPDATE CHANGES OCCUR.
[2021-10-20 04:42] LABS: Anion Gap 4 mmol/L (6-16); Blood Urea Nitrogen 22 mg/dL (8-24); Bun/Creatinine Ratio 30.4 (12.0-20.0); CO2, Blood 43 mmol/L (21-32); Calcium, Blood 8.8 mg/dL (8.5-10.1); Chloride, Blood 90 mmol/L (98-108); Creatinine, Blood 0.72 mg/dL (0.60-1.20); Glomerular Filtration Rate >60 (60-); Glucose, Blood 175 mg/dL (70-99); Phosphorus, Blood 2.9 mg/dL (2.5-4.9); Sodium, Blood 137 mmol/L (136-145)
--- NOTE | 2021-10-20 22:10 | NUR ---
ASSUMED CARE OF PT AT 1900. A/OX4. MAINTAINS OVER 92% ON 2L NC. LS CLEAR UPPER AND CRACKLES LOWER BL. AFIB AVG 120, DENIES CP/PRESSURE. BLE 3+ PITTING EDEMA WITH 2+ PITTING EDEMA IN THE ABDOMEN WELL. NO OTHER CHANGES FROM PREVIOUS NIGHTS, IF CHANGES OCCUR, WILL UPDATE.
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
--- NOTE | 2021-10-21 12:42 | NUR ---
UPDATE: HR MAINTAINING 120-130'S. BP STABLE. DR. GABRIEL UPDATED. NEW ORDERS FOR CARDIOLOGY CONSULT. DR. GARCIA OFFICE CALLED TO PLACE CONSULT.
--- NOTE | 2021-10-21 18:12 | NUR ---
SHIFT SUMMARY: NO ACUTE CHANGES. SEE PREVIOUS NOTES. RESPIRATORY REMAINS UNCHANGED. 2-4L THROUGHOUT THE DAY. NEEDING MORE O2 WHEN SLEEPING. TELE SHOWIGN AFIB WITH HR AVERAGING 80-90'S AT THIS TIME. DR. GARCIA IN TO SEE PATIENT, CHANGES TO MEDICATIONS. DAUGHTER IN TO VISIT. PATIENT EATING WELL. DENIES PAINS/NEEDS. CALL LIGHT IN REACH. WILL CONTINUE TO MONITOR AND REPORT OFF.
[2021-10-22 04:27] LABS: BASOPHILS ABSOLUTE AUTO 0.03 K/mm3 (0.00-0.23); BASOPHILS PERCENT AUTO 0 % (0-2); EOSINOPHILS ABSOLUTE AUTO 0.24 K/mm3 (0.00-0.68); EOSINOPHILS PERCENT AUTO 3 % (0-6); Hematocrit 29.3 % (37.0-53.0); Hemoglobin 8.5 g/dL (13.5-17.5); IMMATURE GRAN ABSOLUTE AUTO 0.02 K/mm3 (0.00-0.10); IMMATURE GRAN PERCENT AUTO 0 % (0-1); LYMPHOCYTES PERCENT AUTO 9 % (21-46); MONOCYTES ABSOLUTE AUTO 0.42 K/mm3 (0.16-1.47); MONOCYTES PERCENT AUTO 6 % (4-13); Mean Corpuscular Volume 90 fL (80-100); Mean Platelet Volume 9.4 fL (9.1-12.4); NEUTROPHILS ABSOLUTE AUTO 6.07 K/mm3 (1.96-9.15); NEUTROPHILS PERCENT AUTO 81 % (41-73); Platelet Count 169 K/mm3 (150-400); RDW Coefficient Variation 23.9 % (11.7-14.2); RDW Standard Deviation 78.3 fL (35.1-46.3); Red Blood Cell Count 3.27 M/mm3 (4.30-5.90); White Blood Cell Count 7.48 K/mm3 (4.00-11.30)
--- NOTE | 2021-10-22 05:37 | NUR ---
HEADER SETUP OPERATOR SUMMARY PT IS AXO X4 AND USES HIS CALL LIGHT TO MAKE HIS NEEDS KNOWN. PT DENIED ANY PAIN OR NAUSEA THIS SHIFT. PT MAINTAINING O2 SATS >92% ON 2L WHEN UP BUT BECAME ORTHOPNEIC WHEN LYING DOWN REQUIRING 4L. BP WNL AND STABLE. TELE SHOWING AFIB 90-115 THIS SHIFT. PT AFEBRILE. THE BIGGEST CHANGE THIS SHIFT IS THAT WOUND CARE WAS DONE ON THE PT'S ABDOMEN WHICH THEN BEGAN TO BLEED REQUIRING 3 DIFFERENT DRESSING CHANGES. A CLARIBEL DRESSING WAS APPLIED W ABD PADS AND AN ABDOMINAL BINDER WHICH CAUSED THE BLEEDING TO STOP. CBC DRAWN TO CHECK HGB WHICH SHOWED NO ACUTE CHANGES. PT AWAKE FOR MOST OF THIS SHIFT. WILL REPORT TO ONCOMING RN.
--- NOTE | 2021-10-22 07:20 | NUR ---
INITIAL ASSESSMENT: Patient is awake sitting on the edge of the bed. He is alert and oriented to self, he is suprised when he learns the date, he states, "you're messing with my head." He is easily redirected and reoriented. He denies pain at this time. HR irreg, afib in the 90s to low 100s. LS with faint crackles in the bases, biox wnl on 2l via NC. BT+. He has the abd binder in place with a gauze dressing, saturated reinforced for now because he wants to eat breakfast. PPP. Patient has 2+ pitting edema to feet and 1+ pitting edema all the way up to his hips. VSS. Patient denies other needs at this time. Call light in reach, will continue to monitor.
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
--- NOTE | 2021-10-22 15:00 | NUR ---
Update: Patient has been sitting on the edge of the bed off and on. VSS. He had a large dark bowel movement with some red streaks. He also started bleeding from his abd while having a BM. Dressing changed. Patient denies other needs at this time. Call light in reach, will continue to monitor.
--- NOTE | 2021-10-22 18:26 | NUR ---
Summary: Patient is admitted with CHF, we are diuresing him. VSS t/o the shift. Bladder training done t/o the shift, and monsalve DC'd. Patient has been requiring 2-4l of oxygen. Discussed with DC planning the fact that patient is going to need some home oxygen and [facility] Casas had ordered Xarelto for DVT prophylaxis, notified patient was admitted with recent GIB back in September and Xarelto was DC'd-order to DC was obtained. Patient has abd wound that has been bleeding, dressing changed twice this shift. No other changes this shift. Will report to oncoming RN.
--- NOTE | 2021-10-22 22:13 | NUR ---
CARE ASSUMPTION PT LYING IN BED W 02 SATS >90% ON 4L NC. BP WNL. TELE SHOWING AFIB AT 100. ABDOMEN DRESSING IS CDI. PT DENYING ANY PAIN OR NAUSEA. PT ASSISTED W THE URINAL AND HELPED BACK INTO BED. PT DENYING ANY FURTHER NEEDS AT THIS TIME.
--- NOTE | 2021-10-23 05:45 | NUR ---
POOL INSTALLER SUMMARY PT IS AXO X4 AND USES HIS CALL LIGHT TO MAKE HIS NEEDS KNOWN. O2 SATS >90% ON 3L NC THIS SHIFT. BP WNL AND STABLE. TELE SHOWING AFIB 90-120 THIS SHIFT. PT AFEBRILE W A PEAK TEMP OF 98.3. DRESSING ON ABDOMEN HAS REMAINED C/D/I THIS SHIFT. PT WAS ABLE TO AMBULATE TO THE BATHROOM W THE FWW W/O ANY INCREASED SOB OR DESATURATIONS. PT SLEPT COMFORTABLY FOR MOST OF THE SHIFT. WILLR REPORT TO ONCGWENDOLYN CASAS.
[2021-10-23 08:01] LABS: Hematocrit 28.6 % (37.0-53.0); Hemoglobin 8.4 g/dL (13.5-17.5)
--- NOTE | 2021-10-23 09:00 | NUR ---
Initial assessment: Patient is alert and oriented. He is sitting on the edge of the bed finishing his breakfast. He denies pain at this time. HR Irreg, A-fib in the 90s to low 100s. VSS. LS Dim with some fine crackles noted in the bases, biox 100% on 4L via NC, titrated down to 2, saturations remain stable. BT hypoactive. Patient has abd dressing to midline CDI. PPP. Pt has pitting edema to ble 2+ in feet and it gradually lessens to 1+ in the upper legs. He is hoping to go home today. Patient denies other needs at this time. Call light in reach. Will continue to monitor.
--- NOTE | 2021-10-23 12:00 | NUR ---
PATIENT IS SITTING UP ON THE EDGE OF THE BED. REPEAT CHEST X-RAY, SHOWS STABLE PELURAL EFFUSION. PLAN IS FOR PATIENT TO DISCHARGE AFTER HOME OXYGEN EVAL. PATIENT DENIES NEEDS AT THIS TIME. CALL LIGHT IN REACH. WILL CONTINUE TO MONITOR.
[2021-10-23] MEDS ORDERED: DOCU100 PO ×2 (12:17)
[2021-10-23] MEDS ORDERED: MIRALAX17 GM PO ×2 (12:19)
[2021-10-23] MEDS ORDERED: HUMULIN R100 UNIT/2 IM ×2 (12:19)
[2021-10-23] MEDS ORDERED: SENNA LAXATIVE8.6 MG PO ×2 (12:21)
[2021-10-23] MEDS ORDERED: METO100ER PO ×2 (14:24)
--- NOTE | 2021-10-23 15:24 | NUR ---
DISCHARGE: Patient qualified for 2L oxygen with activity. [facility] has dropped portable oxygen off. Discharge instructions reviewed with patient and daughter, they both verbalize understanding. Patient to home with daughter via WC.
== END 2021-10-23 15:06 | disposition home or self-care (01) | DRG 291 ==
LOC: ER 12:14 → PCU 17:52 → ERHOLD 17:52 → PCU 19:13
PROVIDERS: Internal Medicine; Student in an Organized Health Care Education/Training Program; ADMIT Internal Medicine
DX: I11.0 Hypertensive heart disease with heart failure (principal); I50.33 Acute on chronic diastolic (congestive) heart failure; J96.01 Acute respiratory failure with hypoxia; J96.02 Acute respiratory failure with hypercapnia; I48.19 Other persistent atrial fibrillation; J44.1 Chronic obstructive pulmonary disease with (acute) exacerbation; E87.2 Acidosis; N17.9 Acute kidney failure, unspecified; I48.92 Unspecified atrial flutter; Z20.822 Contact with and (suspected) exposure to COVID-19; Z66 Do not resuscitate; E11.9 Type 2 diabetes mellitus without complications; I25.10 Atherosclerotic heart disease of native coronary artery without angina pectoris; E66.01 Morbid (severe) obesity due to excess calories; E53.8 Deficiency of other specified B group vitamins; E03.9 Hypothyroidism, unspecified; E87.5 Hyperkalemia; I48.0 Paroxysmal atrial fibrillation; N40.0 Benign prostatic hyperplasia without lower urinary tract symptoms; Q24.8 Other specified congenital malformations of heart; K59.09 Other constipation; E78.5 Hyperlipidemia, unspecified; Z68.38 Body mass index [BMI] 38.0-38.9, adult; I25.2 Old myocardial infarction; Z98.890 Other specified postprocedural states; Z87.891 Personal history of nicotine dependence; Z88.8 Allergy status to other drugs, medicaments and biological substances; Z79.4 Long term (current) use of insulin; Z79.899 Other long term (current) drug therapy
CPT/HCPCS: 0241U; 36415; 36600; 71045; 71046; 71260; 80047; 80048; 80053; 80069; 80076; 80162; 81001; 82803; 82947; 83735; 83880; 84145; 84443; 84484; 85014; 85018; 85025; 85379; 93005; 93010; 93308; 94640; 94644; 94660; 94760; 94761; 94762; 96365; 96366; 96375; 99285-25; A9270; C1751; C9113; J0610; J1160; J1650; J1815; J1940; J2405; J2930; J7799; Q9967

== ENCOUNTER 2021-10-23 22:19 | Emergency (ER) | payer OTHER ==
[~2021-10-23] VITALS: Ht 167.6 cm; Wt 114.8 kg
[~2021-10-23 22:19] MED LIST changes: +DOCU100 PO; +HUMULIN R100 UNIT/2 IM; +METO100ER PO; +MIRALAX17 GM PO; +SENNA LAXATIVE8.6 MG PO
== END 2021-10-23 23:40 | disposition home or self-care (01) ==
LOC: ER 22:19
DX: T81.31XA Disruption of external operation (surgical) wound, not elsewhere classified, initial encounter (principal); E11.9 Type 2 diabetes mellitus without complications; I11.0 Hypertensive heart disease with heart failure; I50.9 Heart failure, unspecified; E78.5 Hyperlipidemia, unspecified; I25.2 Old myocardial infarction; I25.10 Atherosclerotic heart disease of native coronary artery without angina pectoris; D64.9 Anemia, unspecified; Z87.891 Personal history of nicotine dependence; Z79.82 Long term (current) use of aspirin; Z79.899 Other long term (current) drug therapy; Z88.8 Allergy status to other drugs, medicaments and biological substances
CPT/HCPCS: 99283-25

== ENCOUNTER 2021-10-27 10:26 | Inpatient (IN) | payer OTHER ==
[~2021-10-27] VITALS: Ht 167.6 cm; Wt 105.2 kg
[~2021-10-27 10:26] MED LIST changes: -HUMULIN R100 UNIT/2 IM; +HUMULIN R100 UNIT/2 SC
[2021-10-27 10:51] LABS: BASOPHILS ABSOLUTE AUTO 0.04 K/mm3 (0.00-0.23); BASOPHILS PERCENT AUTO 0 % (0-2); EOSINOPHILS ABSOLUTE AUTO 0.24 K/mm3 (0.00-0.68); EOSINOPHILS PERCENT AUTO 2 % (0-6); Hematocrit 27.3 % (37.0-53.0); Hemoglobin 7.8 g/dL (13.5-17.5); IMMATURE GRAN ABSOLUTE AUTO 0.04 K/mm3 (0.00-0.10); IMMATURE GRAN PERCENT AUTO 0 % (0-1); LYMPHOCYTES ABSOLUTE AUTO 0.77 K/mm3 (0.84-5.20); LYMPHOCYTES PERCENT AUTO 7 % (21-46); MONOCYTES ABSOLUTE AUTO 0.53 K/mm3 (0.16-1.47); MONOCYTES PERCENT AUTO 5 % (4-13); Mean Corpuscular HGB 26.2 pg (26.0-34.0); Mean Corpuscular HGB Conc 28.6 g/dL (31.5-36.5); Mean Corpuscular Volume 92 fL (80-100); NEUTROPHILS ABSOLUTE AUTO 9.27 K/mm3 (1.96-9.15); NEUTROPHILS PERCENT AUTO 85 % (41-73); Platelet Count 183 K/mm3 (150-400); RDW Coefficient Variation 23.8 % (11.7-14.2); RDW Standard Deviation 79.4 fL (35.1-46.3); Red Blood Cell Count 2.98 M/mm3 (4.30-5.90); White Blood Cell Count 10.89 K/mm3 (4.00-11.30)
[2021-10-27 11:17] LABS: Alanine Aminotransfer (ALT/SGP 24 U/L (12-78); Albumin, Blood 3.3 g/dL (3.4-5.0); Alk Phos 101 U/L (50-136); Aspartate Aminotrans (AST/SGOT 21 U/L (12-37); Bilirubin, Total 0.6 mg/dL (0.1-1.0); Blood Urea Nitrogen 28 mg/dL (8-24); Bun/Creatinine Ratio 31.8 (12.0-20.0); Calcium, Blood 8.7 mg/dL (8.5-10.1); Chloride, Blood 90 mmol/L (98-108); Creatinine, Blood 0.88 mg/dL (0.60-1.20); Globulin, Blood 3.2 g/dL (2.2-4.0); Glomerular Filtration Rate >60 (60-); Glucose, Blood 279 mg/dL (70-99); Potassium, Blood 4.5 mmol/L (3.5-5.5); Sodium, Blood 139 mmol/L (136-145); Total Protein, Blood 6.5 g/dL (6.4-8.2); Troponin I <0.015 ng/mL (0.000-0.040)
[2021-10-27 11:30] LABS: Anion Gap Unable to Calculate mmol/L (6-16); CO2, Blood >45 mmol/L (21-32)
[2021-10-27 12:37] LABS: Base Excess Venous 21.7 mmol/L; PCO2 Venous 83.6 mmHg (38-42); pH Blood Venous 7.36 (7.34-7.37)
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
[2021-10-28 04:53] LABS: BASOPHILS ABSOLUTE AUTO 0.02 K/mm3 (0.00-0.23); BASOPHILS PERCENT AUTO 0 % (0-2); EOSINOPHILS ABSOLUTE AUTO 0.21 K/mm3 (0.00-0.68); EOSINOPHILS PERCENT AUTO 3 % (0-6); Hematocrit 25.6 % (37.0-53.0); Hemoglobin 7.4 g/dL (13.5-17.5); IMMATURE GRAN ABSOLUTE AUTO 0.04 K/mm3 (0.00-0.10); IMMATURE GRAN PERCENT AUTO 1 % (0-1); LYMPHOCYTES ABSOLUTE AUTO 0.75 K/mm3 (0.84-5.20); LYMPHOCYTES PERCENT AUTO 10 % (21-46); MONOCYTES ABSOLUTE AUTO 0.41 K/mm3 (0.16-1.47); MONOCYTES PERCENT AUTO 6 % (4-13); Mean Corpuscular HGB 26.1 pg (26.0-34.0); Mean Corpuscular HGB Conc 28.9 g/dL (31.5-36.5); Mean Corpuscular Volume 90 fL (80-100); Mean Platelet Volume 9.5 fL (9.1-12.4); NEUTROPHILS ABSOLUTE AUTO 5.93 K/mm3 (1.96-9.15); NEUTROPHILS PERCENT AUTO 81 % (41-73); Platelet Count 178 K/mm3 (150-400); RDW Coefficient Variation 23.7 % (11.7-14.2); RDW Standard Deviation 78.2 fL (35.1-46.3); Red Blood Cell Count 2.84 M/mm3 (4.30-5.90); White Blood Cell Count 7.36 K/mm3 (4.00-11.30)
[2021-10-28 05:10] LABS: Alanine Aminotransfer (ALT/SGP 18 U/L (12-78); Albumin, Blood 2.8 g/dL (3.4-5.0); Albumin/Globulin Ratio 0.8 (0.8-1.8); Alk Phos 86 U/L (50-136); Aspartate Aminotrans (AST/SGOT 12 U/L (12-37); Bilirubin, Total 0.7 mg/dL (0.1-1.0); Blood Urea Nitrogen 29 mg/dL (8-24); Bun/Creatinine Ratio 35.8 (12.0-20.0); Calcium, Blood 8.7 mg/dL (8.5-10.1); Chloride, Blood 92 mmol/L (98-108); Creatinine, Blood 0.81 mg/dL (0.60-1.20); Globulin, Blood 3.4 g/dL (2.2-4.0); Glomerular Filtration Rate >60 (60-); Glucose, Blood 159 mg/dL (70-99); Magnesium, Blood 2.1 mg/dL (1.6-2.4); Sodium, Blood 140 mmol/L (136-145); Total Protein, Blood 6.2 g/dL (6.4-8.2)
[2021-10-28 05:15] LABS: Anion Gap Unable to Calculate mmol/L (6-16); CO2, Blood >45 mmol/L (21-32)
--- NOTE | 2021-10-28 05:38 | NUR ---
SHIFT SUMMARY NO ACUTE CHANGES THIS SHIFT. VSS. AXO. AFIB 90'S. PT, UO UNTIL 0500 WAS STRICTLY ON BIPAP 12/8 40% WITH A SPO2 OF 92%. DESPITE THIS, VBG CO2 STILL >45. PT'S MENTATION WNL. PT NOW ON 2.5LNC WHICH IS HIS BASELINE. ABDOMEN WOUND PRESENTS CLEAN AND DRY. HUNG PATENT AND DRAINING TO GRAVITY. PT UP TO BSC WITHOUT BM THIS SHIFT. PT HAS BEEN TURNING HIMSELF IN BED. OTHERWISE, PT USES CALL LIGHT APPROPRIATELY. BED ALARM ON.
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
[2021-10-28 08:08] LABS: Bicarbonate Venous 48.4 mmol/L (24.0-30.0); PCO2 Venous 49.3 mmHg (38-42); PO2 Venous 180 mmHg (38-42); pH Blood Venous 7.59 (7.34-7.37)
--- NOTE | 2021-10-28 12:32 | NUR ---
Update: VSS. Patient is falling asleep at the bedside encourgaed to lay down. He is having some orthopnea after lying down. He is assisted to sit at the edge of the bed. LS a little more dim on the right side, biox 93% on 2.5l via NC. Patient placed on the Bi-Pap for a brief period to help with SOB. MD aware of SOB. Patient denies other needs at this time. Call light in reach, will continue to monitor.
--- NOTE | 2021-10-28 13:30 | NUR ---
Report given to [facility] floor RN. Patient taken to room 310 via WC.
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
--- NOTE | 2021-10-28 18:41 | NUR ---
SUMMARY- PT A/O X3- FORGETFUL. PT USES CALL LIGHT, IS SBA TO BSC. HAD MED BM THIS PM. HAD 600 IN HUNG FOR 6 HOURS ON MY SHIFT. TOLERATING FOOD AND FLUID. BLOOD SUGAR NOT CHECKED UNTIL AFTER DINNER, COVERED WITH SSRI. WILL CONT TO WORK ON DIURESING. CRACKLES HALF WAY UP LUNG FIELD. OXYGEN 3L. WILL REPORT TO PORTIA CASAS.
--- NOTE | 2021-10-28 19:15 | NUR ---
RECEIVED REPORT AND ASSUMED CARE OF PT. HE IS LYING QUIETLY IN BED WITH HIS EYES CLOSED, RESPIRATIONS EVEN AND UNLABORED. O2 VIA NC IN PLACE @ 2.5 LPM. CALL LIGHT IN REACH. WCTM.
[2021-10-29] MEDS ORDERED: SPIRIVA RESPIMAT4 G3 INH (02:06)
[2021-10-29] MEDS ORDERED: METF500 PO (02:08)
[2021-10-29] MEDS ORDERED: Lisinopril2.5 MG PO (02:09)
--- NOTE | 2021-10-29 02:48 | NUR ---
PT QUESTIONING WHY HE HAS NOT BEEN GIVEN HIS HOME MEDICATIONS. HE STATES HE NORMALLY TAKES LISINOPRIL, METOPROLOL, AND SPIRIVA RESPIMAT ALONG WITH ALBUTEROL. HOME MEDICATION LIST UPDATED IN COMPUTER.
[2021-10-29 05:16] LABS: Hematocrit 26.6 % (37.0-53.0); Hemoglobin 7.8 g/dL (13.5-17.5); Mean Corpuscular HGB 26.4 pg (26.0-34.0); Mean Corpuscular HGB Conc 29.3 g/dL (31.5-36.5); Mean Corpuscular Volume 90 fL (80-100); Mean Platelet Volume 10.3 fL (9.1-12.4); Platelet Count 197 K/mm3 (150-400); RDW Coefficient Variation 23.3 % (11.7-14.2); Red Blood Cell Count 2.96 M/mm3 (4.30-5.90); White Blood Cell Count 7.13 K/mm3 (4.00-11.30)
--- NOTE | 2021-10-29 05:25 | NUR ---
SHIFT SUMMARY: LYNDA IS A&OX4. VSS, NO ACUTE EVENTS OVERNIGHT, MAINTAINING O2 SATS ON 2.5 LPM VIA NC. HE USES THE CALL LIGHT APPROPRIATELY, IV TO L AC PATENT. HE IS A STANDBY ASSIST TO THE BEDSIDE COMMODE, ANABELL BARKER, TOLERATING PO INTAKE WELL. LOWER EXTREMITIES EDEMATOUS, ABLE TO TURN AND REPOSITION HIMSELF IN BED. HE IS LYING IN BED WITH THE CALL LIGHT IN REACH. WILL REPORT TO DAY SHIFT RN.
[2021-10-29 05:57] LABS: Anion Gap 5 mmol/L (6-16); Blood Urea Nitrogen 30 mg/dL (8-24); CO2, Blood 42 mmol/L (21-32); Calcium, Blood 8.7 mg/dL (8.5-10.1); Chloride, Blood 91 mmol/L (98-108); Creatinine, Blood 0.83 mg/dL (0.60-1.20); Glomerular Filtration Rate >60 (60-); Glucose, Blood 194 mg/dL (70-99); Magnesium, Blood 1.9 mg/dL (1.6-2.4); Potassium, Blood 3.9 mmol/L (3.5-5.5); Sodium, Blood 138 mmol/L (136-145)
--- NOTE | 2021-10-29 12:13 | NUR ---
PATIENT GAVE VERBAL PERMISSION FOR THIS STUDENT NURSE TO ADMINISTER INSULIN.
--- NOTE | 2021-10-29 16:45 | NUR ---
PT AMBULATED IN THE THORNTON WITH WALKER AND 02 @2L NC, APPROX 50 FT. MILD SOB NOTED WITH ACTIVITY. TEMPERATURE REGULATOR PYROMETER IN ROOM TO CHECK EVENING VITALS, FOUND O2 SAT 75%. RN NOTIFIED AND INCREASED OXYGEN TO 12L, ENCOURAGED NOSE BREATHING SLOW. SATS SLOWLY INCREASED TO 99% AND BROUGHT O2 BACK DOWN TO 4L. BP 100/50 HR 82 A-FIB. HUNG 1200ML OUT FROM 6 THIS AM AND EMPTIED AT NOON. 250ML INTAKE. CALLED DR MOSER AND NOTIFIED OF ABOVE. ORDERED TO GIVE 1800 LASIX AND DIAMOX IF SBP >110 AND DBP > 60 OTHERWISE HOLD.
--- NOTE | 2021-10-29 17:04 | NUR ---
Spoke with Primary RN Anjel and discussed case. Pt showing improvement and ambulated in the de anda this afternoon. Pt desaturated but quickly recovered after rest. Pt sitting on edge of bed upon arrival. Pt's daughter is at bedside. Pt reports feeling better. He is currently on 4 L O2 via NC. Pt is a and this RN thanked him for his service. Engaged in therapeutic discussion regarding advanced care planning. Pt struggles keeping his eyes opened. Gentle education on disease process and the importance of routine conversations with PCP. Discussed the importance of planning for the future as disease process takes its coarse base on Pt's goals and values. Educated on the importance of weighing self every day. Pt continues to struggle with keeping his eyes opened. Ended visit to allow Pt to rest. Daughter reports no concerns at this time. Palliative Care will remain availabe.
--- NOTE | 2021-10-29 18:12 | NUR ---
SUMMARY- PT A/O X3- SITS AT THE EDGE OF THE BED FREQ. HAS +3 LE EDEMA AND CRACKLES LOWER HALF OF LUNG FIELD BILAT. HAD CXR TODAY THAT INDICICATED SLIGHT IMPROVEMENT. AMBULATED INTO THORNTON WITH WALKER USING PORT O2- BACK TO BED WITH VS 15 MIN LATER, NOTICED SAT 75%, NO OVERT SYMPTOMS. PT RECOVERED AFTER 5 MIN. ALSO HAD A LOW BP AND DR MOSER NOTIFIED. WILL RECHECK BEFORE GIVING 1800 DIURETICS. HUNG MED YELLOW, TOLERATING FLUIDS, ENC TO TAKE IN FLUIDS MINIMALLY. TOLERATINF FOOD. DAUGHTER AT BEDSIDE ALL OF VISITING HOURS.
[2021-10-30 05:27] LABS: Anion Gap 4 mmol/L (6-16); Blood Urea Nitrogen 32 mg/dL (8-24); Bun/Creatinine Ratio 34.9 (12.0-20.0); CO2, Blood 44 mmol/L (21-32); Calcium, Blood 8.9 mg/dL (8.5-10.1); Chloride, Blood 90 mmol/L (98-108); Creatinine, Blood 0.92 mg/dL (0.60-1.20); Glomerular Filtration Rate >60 (60-); Glucose, Blood 201 mg/dL (70-99); Magnesium, Blood 2.1 mg/dL (1.6-2.4); Potassium, Blood 3.6 mmol/L (3.5-5.5); Sodium, Blood 138 mmol/L (136-145)
--- NOTE | 2021-10-30 18:16 | NUR ---
PT SUMMARY: NO ACUTE CHANGE FOR THE SHIFT, VITALS HRR REMAINED AFIB 100'S, BP SYSTOLIC SOFT 95-110 DIAMOX HELD PROVIDER AWARE, SATS ABOVE 90% ON 2L OF O2 MILD SOB WITH EXERTION ESPECIALLY WHEN LAYING FLAT, AFEBRILE. PT/OT ORDERED PT WAS ABLE TO WORK WITH THERAPIST TWICE TODAY WITH NO ISSUES AMBULATING WITH ASSIST VIA WALKER. DENIES ANY PAIN FOR THE SHIFT, ADEQUATE FOOD AND FLUID INTAKE, CATHETER WAS DC'D AT 1500 WAS BLADDER TRAINED BEFORE DISCONTINUING, PT WAS ABLE TO VOID AND USE THE URINAL X1 HAD 100MLS URINE OUT. BLE RAMILA HOSE IN PLACE, NO OTHER ISSUES REPORTED PT ABLE TO MAKE NEEDS KNOWN. WILL REPORT TO ONCOMING SHIFT
[2021-10-31 04:56] LABS: BASOPHILS ABSOLUTE AUTO 0.03 K/mm3 (0.00-0.23); BASOPHILS PERCENT AUTO 0 % (0-2); EOSINOPHILS ABSOLUTE AUTO 0.29 K/mm3 (0.00-0.68); EOSINOPHILS PERCENT AUTO 4 % (0-6); Hematocrit 26.9 % (37.0-53.0); Hemoglobin 7.6 g/dL (13.5-17.5); IMMATURE GRAN ABSOLUTE AUTO 0.03 K/mm3 (0.00-0.10); IMMATURE GRAN PERCENT AUTO 0 % (0-1); LYMPHOCYTES ABSOLUTE AUTO 0.93 K/mm3 (0.84-5.20); LYMPHOCYTES PERCENT AUTO 13 % (21-46); MONOCYTES ABSOLUTE AUTO 0.46 K/mm3 (0.16-1.47); MONOCYTES PERCENT AUTO 6 % (4-13); Mean Corpuscular HGB 25.9 pg (26.0-34.0); Mean Corpuscular HGB Conc 28.3 g/dL (31.5-36.5); Mean Corpuscular Volume 92 fL (80-100); Mean Platelet Volume 9.8 fL (9.1-12.4); NEUTROPHILS ABSOLUTE AUTO 5.72 K/mm3 (1.96-9.15); NEUTROPHILS PERCENT AUTO 77 % (41-73); Platelet Count 195 K/mm3 (150-400); RDW Coefficient Variation 22.8 % (11.7-14.2); RDW Standard Deviation 77.2 fL (35.1-46.3); Red Blood Cell Count 2.93 M/mm3 (4.30-5.90); White Blood Cell Count 7.46 K/mm3 (4.00-11.30)
[2021-10-31 05:22] LABS: Anion Gap 6 mmol/L (6-16); Blood Urea Nitrogen 35 mg/dL (8-24); Bun/Creatinine Ratio 32.7 (12.0-20.0); CO2, Blood 42 mmol/L (21-32); Calcium, Blood 8.6 mg/dL (8.5-10.1); Chloride, Blood 90 mmol/L (98-108); Creatinine, Blood 1.07 mg/dL (0.60-1.20); Glomerular Filtration Rate >60 (60-); Glucose, Blood 236 mg/dL (70-99); Potassium, Blood 3.9 mmol/L (3.5-5.5); Sodium, Blood 138 mmol/L (136-145)
--- NOTE | 2021-10-31 11:49 | NUR ---
PT'S AFTERNOON BP AT 100/[address] MAJOR PT OK'D TO HAVE METOPROLOL IF PRESSURE AT 100 OR GREATER
--- NOTE | 2021-10-31 18:41 | NUR ---
SHFIT NOTE PT UP WITH 1-2 PERSON ASSIST WITH FWW. PT CONFUSED, PILOT STATION, BUT IS REDIRECTABLE. BP HAS REMAINED SOFT BUT ABLE TO ADMINISTER BUMEX AND METOPROLOL. PT REMAINS I AFIB. NO IMPROVEMENT OF EDEMA DURING THIS SHIFT DESPITE GOOD URINE OUTPUT. PT HAS REQUIRE INSULIN COVERAGE T/O THE DAY. PT HAS WORKED WITH PHYSICAL THERAPY AND OCCUPATIONAL THERAPY TODAY. VSS. DENIES CP OR SOB
[2021-11-01 04:52] LABS: BASOPHILS ABSOLUTE AUTO 0.02 K/mm3 (0.00-0.23); BASOPHILS PERCENT AUTO 0 % (0-2); EOSINOPHILS ABSOLUTE AUTO 0.27 K/mm3 (0.00-0.68); EOSINOPHILS PERCENT AUTO 4 % (0-6); Hematocrit 26.7 % (37.0-53.0); Hemoglobin 7.7 g/dL (13.5-17.5); IMMATURE GRAN ABSOLUTE AUTO 0.02 K/mm3 (0.00-0.10); IMMATURE GRAN PERCENT AUTO 0 % (0-1); LYMPHOCYTES ABSOLUTE AUTO 0.82 K/mm3 (0.84-5.20); LYMPHOCYTES PERCENT AUTO 13 % (21-46); MONOCYTES ABSOLUTE AUTO 0.37 K/mm3 (0.16-1.47); MONOCYTES PERCENT AUTO 6 % (4-13); Mean Corpuscular HGB 26.1 pg (26.0-34.0); Mean Corpuscular HGB Conc 28.8 g/dL (31.5-36.5); Mean Corpuscular Volume 91 fL (80-100); Mean Platelet Volume 9.5 fL (9.1-12.4); NEUTROPHILS ABSOLUTE AUTO 4.81 K/mm3 (1.96-9.15); NEUTROPHILS PERCENT AUTO 76 % (41-73); Platelet Count 190 K/mm3 (150-400); RDW Coefficient Variation 22.6 % (11.7-14.2); RDW Standard Deviation 74.3 fL (35.1-46.3); Red Blood Cell Count 2.95 M/mm3 (4.30-5.90); White Blood Cell Count 6.31 K/mm3 (4.00-11.30)
[2021-11-01 05:36] LABS: Anion Gap 5 mmol/L (6-16); Blood Urea Nitrogen 29 mg/dL (8-24); Bun/Creatinine Ratio 31.7 (12.0-20.0); CO2, Blood 42 mmol/L (21-32); Calcium, Blood 8.7 mg/dL (8.5-10.1); Chloride, Blood 92 mmol/L (98-108); Creatinine, Blood 0.92 mg/dL (0.60-1.20); Ferritin, Serum 56 ng/mL (26-388); Glomerular Filtration Rate >60 (60-); Glucose, Blood 146 mg/dL (70-99); Iron Serum 22 ug/dL (65-175); Percent Saturation 8.2 % (20.0-50.0); Potassium, Blood 3.8 mmol/L (3.5-5.5); Sodium, Blood 139 mmol/L (136-145); Total Iron Binding Capacity 269 ug/dL (250-450)
--- NOTE | 2021-11-01 06:11 | NUR ---
Shift notes Patient remain stable, no acute events overnight. He uses urinal, had good amount of urine. His lower extremities are still edematous. He is on 2.5 l N/C. Seat at the edge of the bed often. Able to use bedside comode with assist. We are continue with monitoring patient and report any changes as needed.
[2021-11-01] MEDS ORDERED: BUME2 PO (12:05)
[2021-11-01] MEDS ORDERED: VERAPAMIL HCL PO (12:08)
--- NOTE | 2021-11-01 16:09 | NUR ---
DAUGHTER SHAWN CALLED AND EDUCATED ABOUT D/C. SHE IS EDUCATED ABOUT MEDCIATION CAHGES AND POSSILBE SIDE EFFECTS, SHE EXPRESSED UNDERSTANDING OF D/C TEACHING THAT WAS PROVIDED AND EXPRESSED NO FRUTHER QUESATIONS OR CONCERNS
== END 2021-11-01 14:37 | disposition home health service (06) | DRG 291 ==
LOC: ER 10:26 → MEDS 12:18 → ERHOLD 12:18 → ER 12:18 → PCU 17:20 → MEDS 10-28 13:57
PROVIDERS: Emergency Medicine; Internal Medicine; ADMIT Hospitalist
DX: I11.0 Hypertensive heart disease with heart failure (principal); I50.31 Acute diastolic (congestive) heart failure; J96.21 Acute and chronic respiratory failure with hypoxia; J96.22 Acute and chronic respiratory failure with hypercapnia; E87.3 Alkalosis; I48.19 Other persistent atrial fibrillation; Z68.41 Body mass index [BMI] 40.0-44.9, adult; E66.9 Obesity, unspecified; E03.9 Hypothyroidism, unspecified; N40.0 Benign prostatic hyperplasia without lower urinary tract symptoms; D63.8 Anemia in other chronic diseases classified elsewhere; Z66 Do not resuscitate; J44.9 Chronic obstructive pulmonary disease, unspecified; E11.9 Type 2 diabetes mellitus without complications; I25.10 Atherosclerotic heart disease of native coronary artery without angina pectoris; Z99.81 Dependence on supplemental oxygen; E53.8 Deficiency of other specified B group vitamins; Z98.890 Other specified postprocedural states; Z88.8 Allergy status to other drugs, medicaments and biological substances; Z79.899 Other long term (current) drug therapy; Z79.82 Long term (current) use of aspirin; Z79.4 Long term (current) use of insulin; I25.2 Old myocardial infarction; Z53.29 Procedure and treatment not carried out because of patient's decision for other reasons
CPT/HCPCS: 36415; 51702; 71045; 80048; 80053; 82607; 82728; 82746; 82803; 82947; 83540; 83550; 83735; 83880; 84145; 84484; 85025; 85027; 93005; 93010; 94640; 94660; 94760; 94762; 96374-59; 97110; 97116; 97129; 97130; 97162; 97165; 97530; 97535; 99285-25; A9270; C9113; J1120; J1815; J1940

== ENCOUNTER 2021-11-18 15:37 | Inpatient (IN) | payer OTHER ==
[~2021-11-18] VITALS: Ht 167.6 cm; Wt 98.0 kg
[~2021-11-18 15:37] MED LIST changes: +BUME2 PO; +Lisinopril2.5 MG PO; +SPIRIVA RESPIMAT4 G3 INH; +VERAPAMIL HCL PO
[2021-11-18 16:01] LABS: BASOPHILS ABSOLUTE AUTO 0.02 K/mm3 (0.00-0.23); BASOPHILS PERCENT AUTO 0 % (0-2); EOSINOPHILS PERCENT AUTO 4 % (0-6); Hematocrit 27.2 % (37.0-53.0); Hemoglobin 7.9 g/dL (13.5-17.5); IMMATURE GRAN ABSOLUTE AUTO 0.03 K/mm3 (0.00-0.10); IMMATURE GRAN PERCENT AUTO 0 % (0-1); LYMPHOCYTES ABSOLUTE AUTO 1.18 K/mm3 (0.84-5.20); LYMPHOCYTES PERCENT AUTO 16 % (21-46); MONOCYTES ABSOLUTE AUTO 0.46 K/mm3 (0.16-1.47); MONOCYTES PERCENT AUTO 6 % (4-13); Mean Corpuscular HGB 25.5 pg (26.0-34.0); Mean Corpuscular Volume 88 fL (80-100); Mean Platelet Volume 9.2 fL (9.1-12.4); NEUTROPHILS ABSOLUTE AUTO 5.36 K/mm3 (1.96-9.15); NEUTROPHILS PERCENT AUTO 73 % (41-73); Platelet Count 179 K/mm3 (150-400); RDW Coefficient Variation 21.4 % (11.7-14.2); RDW Standard Deviation 68.8 fL (35.1-46.3); White Blood Cell Count 7.35 K/mm3 (4.00-11.30)
[2021-11-18] MEDS ORDERED: Vitamin B-12100 MCG PO (16:16)
[2021-11-18] MEDS ORDERED: HYDCHL25 PO (16:17)
[2021-11-18] MEDS ORDERED: ROSU10TA PO (16:20)
[2021-11-18] MEDS ORDERED: ASCO500 PO (16:20)
[2021-11-18] MEDS ORDERED: CALCIUM 500+D1 EACH PO (16:22)
[2021-11-18 16:23] LABS: Alanine Aminotransfer (ALT/SGP 16 U/L (12-78); Albumin/Globulin Ratio 0.9 (0.8-1.8); Alk Phos 85 U/L (50-136); Anion Gap 3 mmol/L (6-16); Aspartate Aminotrans (AST/SGOT 14 U/L (12-37); Bilirubin, Total 0.7 mg/dL (0.1-1.0); Blood Urea Nitrogen 15 mg/dL (8-24); Bun/Creatinine Ratio 17.1 (12.0-20.0); CO2, Blood 44 mmol/L (21-32); Calcium, Blood 8.1 mg/dL (8.5-10.1); Chloride, Blood 91 mmol/L (98-108); Creatinine, Blood 0.88 mg/dL (0.60-1.20); Globulin, Blood 3.4 g/dL (2.2-4.0); Glomerular Filtration Rate >60 (60-); Glucose, Blood 176 mg/dL (70-99); Potassium, Blood 3.8 mmol/L (3.5-5.5); Sodium, Blood 138 mmol/L (136-145); Total Protein, Blood 6.4 g/dL (6.4-8.2)
[2021-11-18] MEDS ORDERED: Saw Palmetto160 MG (16:23)
[2021-11-18] MEDS ORDERED: MULTI-VITAMIN1 EAC2 PO (16:23)
[2021-11-18] MEDS ORDERED: FEROSUL325 M1 PO (16:23)
[2021-11-18 16:24] LABS: International Normalized Ratio 1.21; Prothrombin Time Results 12.5 Sec (9.7-11.5)
[2021-11-18] MEDS ORDERED: SIME80CH PO (16:24)
[2021-11-18] MEDS ORDERED: METF500 PO (23:53)
[2021-11-19 03:41] LABS: Hematocrit 25.8 % (37.0-53.0); Hemoglobin 7.6 g/dL (13.5-17.5); Mean Corpuscular HGB 25.8 pg (26.0-34.0); Mean Corpuscular HGB Conc 29.5 g/dL (31.5-36.5); Mean Corpuscular Volume 88 fL (80-100); Mean Platelet Volume 9.4 fL (9.1-12.4); Platelet Count 181 K/mm3 (150-400); RDW Coefficient Variation 21.5 % (11.7-14.2); Red Blood Cell Count 2.95 M/mm3 (4.30-5.90); White Blood Cell Count 8.38 K/mm3 (4.00-11.30)
[2021-11-19 04:04] LABS: BAND PERCENT MAN 25 % (0-8); BASOPHILS PERCENT MAN 0 % (0-2); EOSINOPHILS PERCENT MAN 0 % (0-6); LYMPHOCYTES ABSOLUTE MAN 0.58 K/mm3 (0.84-5.20); LYMPHOCYTES PERCENT MAN 7 % (21-46); MONOCYTES ABSOLUTE MAN 0.41 K/mm3 (0.16-1.47); MONOCYTES PERCENT MAN 5 % (4-13); NEUTROPHILS ABSOLUTE MAN 7.37 K/mm3 (1.96-9.15); SEG NEUTROPHILS PERCENT MAN 63 % (41-73); TOTAL CELLS COUNTED 100
[2021-11-19 04:07] LABS: Anion Gap 4 mmol/L (6-16); Blood Urea Nitrogen 16 mg/dL (8-24); Bun/Creatinine Ratio 16.3 (12.0-20.0); CO2, Blood 45 mmol/L (21-32); Calcium, Blood 7.9 mg/dL (8.5-10.1); Chloride, Blood 88 mmol/L (98-108); Creatinine, Blood 0.98 mg/dL (0.60-1.20); Glomerular Filtration Rate >60 (60-); Glucose, Blood 166 mg/dL (70-99); Potassium, Blood 3.7 mmol/L (3.5-5.5); Sodium, Blood 137 mmol/L (136-145)
--- NOTE | 2021-11-19 09:08 | NUR ---
CARE OF PT ASSUMED AT 0700. PT AWAKE IN BED, DENIES C/O PAIN, SOB. SATS 99% ON 3L VIA N/C, DECREASED TO 2L. CRACKLES TO BILAT BASES, WORSE ON LEFT SIDE. PT IN AFLUTTER W RATE 130, CONFIRMED BY EKG. AMIODARONE GTT AT 0.5MG/MIN. BP ON LOWER SIDE W MAP >65. PT NPO FOR POSSIBLE CARIOVERSION TODAY. PO MEDS TO BE HELD PER DR MOSER. DR MOSER IN THIS AM; FULL UPDATE GIVEN. POWERGLIDE PLACED TO MARY W/O DIFFICULTY.
--- NOTE | 2021-11-19 12:50 | NUR ---
DR ORTIZ CALLED AND GIVEN FULL UPDATE. PT WILL NOT BE CARDIOVERTED HE IS UNABLE TO TAKE ANTICOAGS D/T HX OF BLEED. AMIO GTT CONT AT 0.5MG/MIN. TOPROL XL AND VERAPAMIL GIVEN PER DR ORTIZ.
--- NOTE | 2021-11-19 15:38 | NUR ---
DR SANCHEZ GIVEN PHONE UPDATE. PT IS RESTING IN BED. C/O SOME MID ABD CRAMPING. PT DID HAVE LIQUID STOOL WITH URGENCY EARLIER. BP STABLE. HR/RHYTHM UNCHANGED. SATS 93% ON 2L VIA N/C. FINE CRACKLES TO BASES UNCHANGED. PT SOB W EXERTION.
--- NOTE | 2021-11-19 17:51 | NUR ---
DR SANCHEZ GIVEN FULL PHONE UPDATE. BP ON LOWER SIDE BUT PT ASYMPTOMATIC AND MAPS >65. HEART RATE STARTING TO TREND DOWN FROM 105 TO 120, A-FLUTTER. PT HAS FINE CRACKLES BILAT AND ARE AUDIBLY MOIST. BUMEX PO GIVEN, WILL CONT TO MONITOR VS CLOSELY. SATS 100% ON 2L BUT DO FALL TO 90% W EXERTION AND SLEEP. AMIO CONT'S AT 0.5MG/MIN.
--- NOTE | 2021-11-19 18:33 | NUR ---
RHTHYM HAS CHANGED FROM A-FLUTTER TO AFIB/AFLUTTER W RATE 80-110. BP REMAINS STABLE.
--- NOTE | 2021-11-19 19:00 | NUR ---
ASSUMED CARE ASSUMED CARE OF PATIENT. AWAKE AND ALERT. SITTING UP ON EDGE OF BED. DENIES C/O PAIN OR DISCOMFORT. RESPIRATIONS EVEN AND UNLABORED AT REST. PER PATIENT, MILD SOB WITH EXERTION. O2 2L NC- SATS 95-97%. OCCASIONAL NON-PRODUCTIVE COUGH. MONITOR SHOWS AFIB WITH OCCASIONAL AFLUTTER, RATE 90s-110. BP STABLE. AMIODARONE INFUSING AT 0.5MG/MIN PER ORDER. VOIDING WITHOUT DIFFICULTY. SEE SHIFT ASSESSMENT FOR FULL ASSESSMENT.
[2021-11-20 04:01] LABS: BASOPHILS ABSOLUTE AUTO 0.02 K/mm3 (0.00-0.23); BASOPHILS PERCENT AUTO 0 % (0-2); EOSINOPHILS ABSOLUTE AUTO 0.35 K/mm3 (0.00-0.68); EOSINOPHILS PERCENT AUTO 6 % (0-6); Hemoglobin 7.5 g/dL (13.5-17.5); IMMATURE GRAN ABSOLUTE AUTO 0.04 K/mm3 (0.00-0.10); IMMATURE GRAN PERCENT AUTO 1 % (0-1); LYMPHOCYTES ABSOLUTE AUTO 0.96 K/mm3 (0.84-5.20); LYMPHOCYTES PERCENT AUTO 15 % (21-46); MONOCYTES ABSOLUTE AUTO 0.41 K/mm3 (0.16-1.47); MONOCYTES PERCENT AUTO 6 % (4-13); Mean Corpuscular HGB 25.3 pg (26.0-34.0); Mean Corpuscular HGB Conc 28.8 g/dL (31.5-36.5); Mean Corpuscular Volume 88 fL (80-100); Mean Platelet Volume 9.2 fL (9.1-12.4); NEUTROPHILS ABSOLUTE AUTO 4.63 K/mm3 (1.96-9.15); NEUTROPHILS PERCENT AUTO 72 % (41-73); Platelet Count 175 K/mm3 (150-400); RDW Standard Deviation 67.3 fL (35.1-46.3); Red Blood Cell Count 2.97 M/mm3 (4.30-5.90); White Blood Cell Count 6.41 K/mm3 (4.00-11.30)
[2021-11-20 04:38] LABS: Alanine Aminotransfer (ALT/SGP 15 U/L (12-78); Albumin/Globulin Ratio 0.9 (0.8-1.8); Alk Phos 88 U/L (50-136); Aspartate Aminotrans (AST/SGOT 15 U/L (12-37); Bilirubin, Total 0.8 mg/dL (0.1-1.0); Blood Urea Nitrogen 15 mg/dL (8-24); Bun/Creatinine Ratio 15.9 (12.0-20.0); Chloride, Blood 88 mmol/L (98-108); Creatinine, Blood 0.95 mg/dL (0.60-1.20); Globulin, Blood 3.5 g/dL (2.2-4.0); Glomerular Filtration Rate >60 (60-); Glucose, Blood 173 mg/dL (70-99); Potassium, Blood 3.4 mmol/L (3.5-5.5); Sodium, Blood 137 mmol/L (136-145); Total Protein, Blood 6.5 g/dL (6.4-8.2)
[2021-11-20 04:46] LABS: CO2, Blood >45 mmol/L (21-32)
[2021-11-20 04:47] LABS: Anion Gap Unable to Calculate mmol/L (6-16)
--- NOTE | 2021-11-20 05:58 | NUR ---
SHIFT SUMMARY NO ACUTE CHANGES. SLEPT INTERMITTENTLY. STANDS AT BEDSIDE TO VOID Q1-2H. RESPIRATIONS EVEN AND UNLABORED AT REST, SLIGHTLY SHORT OF BREATH WITH EXERTION. O2 DECREASED TO 1L NC THIS AM- SATS STABLE. REMAINS IN AFLUTTER/AFIB, RATE 90s-110s. BP STABLE. AMIODARONE CONTINUES AT 0.5MG/MIN. VOIDING WITHOUT DIFFICULTY. C/O MILD BURNING SENSATION IN BILATERAL UPPER LEGS. DENIES OTHER C/O PAIN OR DISCOMFORT. WILL REPORT TO ONCOMING RN WHEN AVAILABLE.
[2021-11-20] MEDS ORDERED: AMIODARONE HCL400 M1 PO (12:30)
[2021-11-20] MEDS ORDERED: ASCO500 PO (12:31)
[2021-11-20] MEDS ORDERED: Aspirin325 MG PO (12:34)
[2021-11-20] MEDS ORDERED: CALCIUM CARBON500 M1 PO (12:35)
[2021-11-20] MEDS ORDERED: Vitamin B-12100 MCG PO (12:42)
[2021-11-20] MEDS ORDERED: FERROUS SULFAT325 M3 PO (12:43)
[2021-11-20] MEDS ORDERED: Micro-K10 MEQ PO (12:46)
[2021-11-20] MEDS ORDERED: AMIODARONE HCL200 M1 PO (12:48)
[2021-11-20] MEDS ORDERED: ASPI81CH PO (12:51)
--- NOTE | 2021-11-20 17:30 | NUR ---
PT DISCHARGED TO HOME VIA MEDICAL TRANSPORT VAN AROUND 1630. ALL BELONGINGS SENT HOME WITH PATIENT.
== END 2021-11-20 17:00 | disposition home or self-care (01) | DRG 309 ==
LOC: ER 15:37 → MEDS 15:38 → ICUW 22:27 → MEDS 22:48 → ICUW 23:40 → MEDS 11-19 01:09 → ICUW 11-19 02:45
PROVIDERS: Emergency Medicine; Internal Medicine; Student in an Organized Health Care Education/Training Program; ADMIT Internal Medicine
DX: I48.19 Other persistent atrial fibrillation (principal); I50.32 Chronic diastolic (congestive) heart failure; Z66 Do not resuscitate; I48.92 Unspecified atrial flutter; E53.8 Deficiency of other specified B group vitamins; R79.89 Other specified abnormal findings of blood chemistry; J44.9 Chronic obstructive pulmonary disease, unspecified; E11.9 Type 2 diabetes mellitus without complications; E78.5 Hyperlipidemia, unspecified; E03.9 Hypothyroidism, unspecified; E66.9 Obesity, unspecified; D50.9 Iron deficiency anemia, unspecified; I11.0 Hypertensive heart disease with heart failure; E78.00 Pure hypercholesterolemia, unspecified; E87.70 Fluid overload, unspecified; N40.0 Benign prostatic hyperplasia without lower urinary tract symptoms; I25.10 Atherosclerotic heart disease of native coronary artery without angina pectoris; Z68.35 Body mass index [BMI] 35.0-35.9, adult; I25.2 Old myocardial infarction; Z88.8 Allergy status to other drugs, medicaments and biological substances; Z79.4 Long term (current) use of insulin; Z79.82 Long term (current) use of aspirin; Z79.899 Other long term (current) drug therapy
CPT/HCPCS: 36415; 71260; 80048; 80053; 82947; 83735; 83880; 85025; 85379; 85610; 93005; 93010; 94640; 94762; 96365; 96366; 96375; 99285-25; A9270; C1751; G0378; J0282; J1815; J7060; Q9967

== ENCOUNTER 2022-07-27 08:34 | Inpatient (IN) | payer OTHER ==
[~2022-07-27] VITALS: Ht 167.6 cm; Wt 99.0 kg
[~2022-07-27 08:34] MED LIST changes: +ACET325 PO; +AMIODARONE HCL200 M1 PO; +AMIODARONE HCL400 M1 PO; +ASPI81CH PO; +ATOR10 PO; +Amiodarone HCl200 MG PO; +Aspirin325 MG PO; +BUME1 PO; -BUME2 PO; +CALCIUM 500+D1 EACH PO; +CALCIUM CARBON500 M1 PO; +ELIQUIS5 M2 PO; +FEROSUL325 M1 PO; +FERROUS GLUCON324 M3 PO; +FERROUS SULFAT325 M3 PO; +MAGNESIUM OXID400 M1 PO; -METO100ER PO; +METO50ER PO; +MULTI-VITAMIN1 EAC2 PO; +Micro-K10 MEQ PO; +SIME80CH PO; +STIOLTO RESPIMAT4 G1 INH; +Saw Palmetto160 MG; +Vitamin B-12100 MCG PO
[2022-07-27 09:34] LABS: BASOPHILS ABSOLUTE AUTO 0.02 K/mm3 (0.00-0.23); BASOPHILS PERCENT AUTO 0 % (0-2); EOSINOPHILS ABSOLUTE AUTO 0.17 K/mm3 (0.00-0.68); EOSINOPHILS PERCENT AUTO 2 % (0-6); Hematocrit 21.2 % (37.0-53.0); Hemoglobin 6.2 g/dL (13.5-17.5); IMMATURE GRAN ABSOLUTE AUTO 0.12 K/mm3 (0.00-0.10); IMMATURE GRAN PERCENT AUTO 1 % (0-1); LYMPHOCYTES ABSOLUTE AUTO 1.48 K/mm3 (0.84-5.20); LYMPHOCYTES PERCENT AUTO 17 % (21-46); MONOCYTES ABSOLUTE AUTO 0.49 K/mm3 (0.16-1.47); MONOCYTES PERCENT AUTO 6 % (4-13); Mean Corpuscular HGB 27.8 pg (26.0-34.0); Mean Corpuscular HGB Conc 29.2 g/dL (31.5-36.5); Mean Corpuscular Volume 95 fL (80-100); Mean Platelet Volume 11.2 fL (9.1-12.4); NEUTROPHILS PERCENT AUTO 74 % (41-73); NRBC ABSOLUTE 0.03 K/mm3 (0.00-0.02); NRBC Auto 0.3 /100 WBC (0.0-0.2); Platelet Count 180 K/mm3 (150-400); RDW Coefficient Variation 23.5 % (11.7-14.2); RDW Standard Deviation 79.5 fL (35.1-46.3); Red Blood Cell Count 2.23 M/mm3 (4.30-5.90); White Blood Cell Count 8.88 K/mm3 (4.00-11.30)
[2022-07-27 09:47] LABS: Albumin, Blood 3.1 g/dL (3.4-5.0); Albumin/Globulin Ratio 1.1 (0.8-1.8); Bilirubin, Total 0.5 mg/dL (0.1-1.0); Bun/Creatinine Ratio 33.1 (12.0-20.0); Calcium, Blood 8.7 mg/dL (8.5-10.1); Creatinine, Blood 1.42 mg/dL (0.60-1.20); Globulin, Blood 2.9 g/dL (2.2-4.0); Potassium, Blood 4.7 mmol/L (3.5-5.5)
[2022-07-27 10:32] LABS: Source, Urine Voided
[2022-07-27 10:41] LABS: Appearance, Urine Hazy (Clear); Bilirubin, Urine Neg (Neg); Blood, Urine 1+ (Neg); Glucose Qualitative, Urine Neg (Neg); Ketones, Urine Neg (Neg); Leukocyte Esterase, Urine 3+ (Neg); Nitrite, Urine Neg (Neg); Protein, Urine 1+ (Neg); Specific Gravity, Urine 1.015 (1.003-1.022); Urobilinogen, Urine NORM (Normal)
[2022-07-27 10:54] LABS: Color, Urine Pale Yellow (P-Yellow)
[2022-07-27 10:55] LABS: White Blood Cells, Urine 25-50 /hpf (0-5)
[2022-07-27 10:56] LABS: Bacteria Rare /hpf; Red Blood Cells, Urine 0-2 /hpf (0-2); Squamous Epithelial Cells Rare /hpf (Few)
[2022-07-27 10:57] LABS: Hyaline Casts 0-2 /lpf (0-2); Transitional Epithelial Cells Rare /hpf (0-Rare)
[2022-07-27] MEDS ORDERED: MAGSULP TOP (11:43)
[2022-07-27] MEDS ORDERED: Crestor20 MG PO (12:45)
[2022-07-27] MEDS ORDERED: HUMULIN N100 UNIT/1 SC (12:51)
[2022-07-27 15:15] LABS: SARS-Cov-2 (COVID-19) PCR, MMC POSITIVE (NEGATIVE)
--- NOTE | 2022-07-27 16:45 | NUR ---
REPORT RECEIVED FROM YESSENIA GIBSON. PT ARRIVED TO THE ED TODAY W/ C/O DIZZINESS & HYPOTENSION, SBP 80s @ HOME. HE WAS FOUND TO BE ANEMIC W/ +GUIAC. DENIES ANY TERRENCE RED BLOOD IN STOOLS LATELY. KNOWN Hx OF AFIB, HOWEVER FOUND TO BE IN AFIB W/ RVR IN ED. ADMITTED PCU STATUS THIS AFTERNOON. UPON INITIAL ASSESSMENT, PT IS PALE, WARM, DRY. APPROPRIATELY INTERACTIVE, POLITE, & FULLY PARTICIPATES IN ASSESSMENTS. MONITOR INDICATES AFIB W/ RATE 100-120s, PT DENIES CP. AMIO gtt @ 1mg/min. UNABLE TO STAND @ BEDSIDE W/OUT DIZZINESS BUT DOES WELL W/ 1P ASSIST. VOIDS W/ URINAL. CURRENTLY RECEIVING 2nd UNIT PRBCs. TOLERATING WELL. SEE ADMIT ASSESSMENT FOR FULL EVAL.
[2022-07-27 21:15] LABS: Hematocrit 22.8 % (37.0-53.0); Hemoglobin 7.1 g/dL (13.5-17.5)
[2022-07-28 04:01] LABS: Hematocrit 19.6 % (37.0-53.0); Hemoglobin 6.5 g/dL (13.5-17.5); Mean Corpuscular HGB 29.4 pg (26.0-34.0); Mean Corpuscular HGB Conc 33.2 g/dL (31.5-36.5); Mean Platelet Volume 10.6 fL (9.1-12.4); NRBC ABSOLUTE 0.03 K/mm3 (0.00-0.02); NRBC Auto 0.4 /100 WBC (0.0-0.2); Platelet Count 140 K/mm3 (150-400); RDW Coefficient Variation 21.7 % (11.7-14.2); RDW Standard Deviation 67.8 fL (35.1-46.3); Red Blood Cell Count 2.21 M/mm3 (4.30-5.90); White Blood Cell Count 7.21 K/mm3 (4.00-11.30)
[2022-07-28 04:02] LABS: Mean Corpuscular Volume 89 fL (80-100)
[2022-07-28 04:16] LABS: Bun/Creatinine Ratio 40.5 (12.0-20.0); Calcium, Blood 7.9 mg/dL (8.5-10.1); Creatinine, Blood 1.26 mg/dL (0.60-1.20); Magnesium, Blood 1.3 mg/dL (1.6-2.4); Potassium, Blood 4.2 mmol/L (3.5-5.5)
--- NOTE | 2022-07-28 05:13 | NUR ---
SHIFT SUMMARY: PT REMAINS ALERT AND ORIENTED X4, ABLE TO FOLLOW COMMANDS AND MAKE NEEDS KNOWN. PT REMAINS IN AFIB 100S, 130'S WITH ACTIVITY. AMIODARONE GTT @16.6 ML/HR. BP STABLE THROUGHOUT NIGHT, AFEBRILE, PT SATING >95% ON RA. POWERGLIDE PLACED THIS EVENING IN MARY. LR PLACED ON STANDBY. PT UP TO USE URINAL MUTIPLE TIMES THROUGHOUT SHIFT. NO EPISODES OF TERRENCE RED STOOL. HGB 6.5 THIS AM, ORDERS RECIEVED FOR 1 UNIT OF PRBC, CURRENTLY INFUSING, PT RESPONDING WELL. NO COMPLAINTS OF NAUSEA OR VOMITING THIS SHIFT. PT REMAINS NPO FOR POSSIBLE SCOPE TODAY. PT CURRENTLY SLEEPING, CALL LIGHT IN REACH, WILL REPORT TO ONCOMING RN.
[2022-07-28 08:56] LABS: Hematocrit 23.2 % (37.0-53.0); Hemoglobin 7.4 g/dL (13.5-17.5)
[2022-07-28 10:26] LABS: International Normalized Ratio 1.14; Prothrombin Time Results 11.9 Sec (9.7-11.5)
--- NOTE | 2022-07-28 17:30 | NUR ---
SHIFT SUMMARY PT REMAINS ALERT AND ORIENTED. BP STABLE. HR AFIB OR SINUS TACH AT TIMES 90-110'S. O2 SATS REMAIN ABOVE 90% ON RA. PT HAS DENIED ANY PAIN. PT HAS HAD MULTIPLE BM THAT ARE BLACK, BUT WHEN SMEARED THEY ARE DARK BROWN. PT ABLE TO WALK TO THE BATHROOM INDEPENDENTLY. PLANS PER GI ARE FOR OUTPATIENT SCOPE AND DR. SUAZO CALLED AND UPDATED. WILL CONTINUE TO MONITOR AND REPORT TO ONCOMING RN
[2022-07-29 04:04] LABS: Hematocrit 22.4 % (37.0-53.0); Hemoglobin 7.3 g/dL (13.5-17.5); Mean Corpuscular HGB 29.6 pg (26.0-34.0); Mean Corpuscular HGB Conc 32.6 g/dL (31.5-36.5); Mean Corpuscular Volume 91 fL (80-100); Mean Platelet Volume 10.2 fL (9.1-12.4); NRBC ABSOLUTE 0.03 K/mm3 (0.00-0.02); NRBC Auto 0.5 /100 WBC (0.0-0.2); Platelet Count 150 K/mm3 (150-400); RDW Coefficient Variation 20.5 % (11.7-14.2); RDW Standard Deviation 66.4 fL (35.1-46.3); Red Blood Cell Count 2.47 M/mm3 (4.30-5.90); White Blood Cell Count 6.37 K/mm3 (4.00-11.30)
[2022-07-29 04:27] LABS: Anion Gap 5 mmol/L (6-16); Blood Urea Nitrogen 27 mg/dL (8-24); Bun/Creatinine Ratio 23.9 (12.0-20.0); CO2, Blood 28 mmol/L (21-32); Calcium, Blood 8.3 mg/dL (8.5-10.1); Chloride, Blood 110 mmol/L (98-108); Creatinine, Blood 1.13 mg/dL (0.60-1.20); Glomerular Filtration Rate 67 (60-); Glucose, Blood 154 mg/dL (70-99); Phosphorus, Blood 2.6 mg/dL (2.5-4.9); Potassium, Blood 4.3 mmol/L (3.5-5.5); Sodium, Blood 143 mmol/L (136-145)
--- NOTE | 2022-07-29 05:21 | NUR ---
PT IS ALERT AND COMMUNICATING APPROPRIATELY. PT HAS HAD NO S/S OF BLEEDING THIS SHIFT. BP WNL AND STABLE. TELE SHOWING ST 100-110'S. PT'S O2 SATS >94% ON RM AIR. NO NEW EVENTS THIS SHIFT. WILL REPORT TO ONCOMING RN.
--- NOTE | 2022-07-29 08:37 | NUR ---
Pt is sitting up, eating breakfast after assessment and vital signs taken this morning. He is independently ambulatory in the room and to the bathroom. Denies any dyspnea, but does states that he has a cough all day long with productive clear sputum. No cough noted while I was in the room with him. He is sitting up on the side of the bed.
[2022-07-29 12:17] LABS: Percent Saturation 32.4 % (20.0-50.0)
--- NOTE | 2022-07-29 12:36 | NUR ---
Pt is sitting on the side of the bed, just finished eating lunch. STates that his tray had grape juice and NON sugar-free vanilla pudding. Diet was changed to ADA/Cardiac. Pt had 3 bowel movements this morning, which were dark green in color. Instructed the pt to let the RN see the stool next time he has one. vital signs are stable.
[2022-07-30 05:55] LABS: Hemoglobin 7.1 g/dL (13.5-17.5)
--- NOTE | 2022-07-30 06:21 | NUR ---
SHIFT SUMMARY PT A&O X4. PLEASANT UPON INTERACTION AND COOPERATIVE WITH CARE. VSS. PT DENIES SOB, O2 SATS >94% ON RA. DENIES CHEST PAIN OR CHEST PRESSURE. DENIES N/V AND DIZZINESS. PT REPORTS HAVING BM THAT WAS "BLACK, DARK IN COLOR". DENIES ANY CHANGES IN VOIDING AND DYSURIA. PT UP INDEPENDENTLY IN ROOM TO USE RESTROOM AND REPOSITIONING INDEPENDENTLY. NO ACUTE CHANGES. PT RESTED ON AND OFF THROUGHOUT SHIFT. CALL LIGHT IN REACH AND BED IN LOWEST POSITION
--- NOTE | 2022-07-30 09:56 | NUR ---
The pt has no complaints this morning. He has had one bowel movement, soft, formed very dark brown stool when smeared looks brown.
--- NOTE | 2022-07-30 09:58 | NUR ---
Noted new orders for blood transfusion. PT was informed, and consent for blood products is noted in the pt's chart.
--- NOTE | 2022-07-30 11:13 | NUR ---
Transfusion of 1 unit PRBC in progress. Pt had no SHOB, no dyspnea, no increase in oxgyen needs nor tachypnea, and denies any pain/discomfort after the first 15 minutes of the transfusion completed.
[2022-07-30 15:30] LABS: Hematocrit 29.4 % (37.0-53.0); Hemoglobin 9.1 g/dL (13.5-17.5)
--- NOTE | 2022-07-30 16:20 | NUR ---
Call to Dr. Green to notify her of lab results, Hgb and Hct and ionized calcium.
--- NOTE | 2022-07-30 17:30 | NUR ---
Pt is ready to go home. STates he wants to eat at home, not here. STates that he will get a taxi to get home because his daughter whom he lives with does not drive.
== END 2022-07-30 18:31 | disposition home or self-care (01) | DRG 377 ==
LOC: ER 08:34 → PCU 08:35
PROVIDERS: Emergency Medicine; Family Medicine; Internal Medicine; ADMIT Internal Medicine
PROC: 8E0ZXY6 Isolation (ICD-10-PCS; principal; 2022-07-28)
DX: K92.2 Gastrointestinal hemorrhage, unspecified (principal); R57.1 Hypovolemic shock; R57.8 Other shock; U07.1 COVID-19; D62 Acute posthemorrhagic anemia; E87.20 Acidosis, unspecified; N17.9 Acute kidney failure, unspecified; I50.42 Chronic combined systolic (congestive) and diastolic (congestive) heart failure; I48.20 Chronic atrial fibrillation, unspecified; I48.91 Unspecified atrial fibrillation; E11.9 Type 2 diabetes mellitus without complications; J44.9 Chronic obstructive pulmonary disease, unspecified; E03.9 Hypothyroidism, unspecified; I25.10 Atherosclerotic heart disease of native coronary artery without angina pectoris; K21.9 Gastro-esophageal reflux disease without esophagitis; E83.42 Hypomagnesemia; E78.00 Pure hypercholesterolemia, unspecified; I25.2 Old myocardial infarction; N40.0 Benign prostatic hyperplasia without lower urinary tract symptoms; E53.8 Deficiency of other specified B group vitamins; Z98.890 Other specified postprocedural states; Z66 Do not resuscitate; Z79.899 Other long term (current) drug therapy; Z79.4 Long term (current) use of insulin; Z99.81 Dependence on supplemental oxygen; E66.9 Obesity, unspecified; Z68.32 Body mass index [BMI] 32.0-32.9, adult
CPT/HCPCS: 36415; 36430; 71045; 80048; 80053; 80069; 81001; 82330; 82607; 82728; 82746; 82947; 83540; 83550; 83605; 83735; 83880; 84443; 84484; 85014; 85018; 85025; 85027; 85610; 85730; 86850; 86900; 86901; 86923; 87077; 87086; 87186; 93005; 93010; 93306; 94640; 94664; 94760; 94762; 96365; 96375; 96376; 99285-25; A9270; C1751; C9113; G0378; J0282; J1815; J3475; J7030; J7060; J7120; P9016; U0004

== ENCOUNTER 2023-07-23 18:09 | Emergency (ER) | payer OTHER ==
[~2023-07-23] VITALS: Ht 167.6 cm; Wt 98.4 kg
[~2023-07-23 18:09] MED LIST changes: +Crestor20 MG PO; +HUMULIN N100 UNIT/1 SC; +JARDIANCE25 MG PO; +MAGNESIUM OXID500 MG PO; +MAGSULP TOP; +STRIVERDI RESPIM4 G1 IH; +TAMS.4ER PO
[2023-07-23 18:41] LABS: BASOPHILS ABSOLUTE AUTO 0.04 K/mm3 (0.00-0.23); BASOPHILS PERCENT AUTO 1 % (0-2); EOSINOPHILS ABSOLUTE AUTO 0.22 K/mm3 (0.00-0.68); EOSINOPHILS PERCENT AUTO 4 % (0-6); Hematocrit 30.3 % (37.0-53.0); Hemoglobin 9.4 g/dL (13.5-17.5); IMMATURE GRAN ABSOLUTE AUTO 0.03 K/mm3 (0.00-0.10); IMMATURE GRAN PERCENT AUTO 1 % (0-1); LYMPHOCYTES ABSOLUTE AUTO 0.69 K/mm3 (0.84-5.20); LYMPHOCYTES PERCENT AUTO 12 % (21-46); MONOCYTES ABSOLUTE AUTO 0.26 K/mm3 (0.16-1.47); MONOCYTES PERCENT AUTO 5 % (4-13); Mean Corpuscular HGB 32.5 pg (26.0-34.0); Mean Corpuscular Volume 105 fL (80-100); Mean Platelet Volume 10.1 fL (9.1-12.4); NEUTROPHILS ABSOLUTE AUTO 4.51 K/mm3 (1.96-9.15); NEUTROPHILS PERCENT AUTO 79 % (41-73); Platelet Count 173 K/mm3 (150-400); RDW Coefficient Variation 18.5 % (11.7-14.2); RDW Standard Deviation 71.7 fL (35.1-46.3); Red Blood Cell Count 2.89 M/mm3 (4.30-5.90); White Blood Cell Count 5.75 K/mm3 (4.00-11.30)
[2023-07-23 19:18] LABS: Albumin, Blood 3.5 g/dL (3.4-5.0); Albumin/Globulin Ratio 1.2 (0.8-1.8); Bilirubin, Total 0.6 mg/dL (0.1-1.0); Bun/Creatinine Ratio 22.5 (12.0-20.0); Calcium, Blood 8.6 mg/dL (8.5-10.1); Creatinine, Blood 1.42 mg/dL (0.60-1.20); Globulin, Blood 2.9 g/dL (2.2-4.0); Potassium, Blood 5.1 mmol/L (3.5-5.5); Total Protein, Blood 6.4 g/dL (6.4-8.2)
[2023-07-23 23:06] VITALS: BP 143/49
== END 2023-07-24 00:16 | disposition home or self-care (01) ==
LOC: ER 18:09
PROVIDERS: Physician Assistant
DX: R42 Dizziness and giddiness (principal); E11.9 Type 2 diabetes mellitus without complications; J44.9 Chronic obstructive pulmonary disease, unspecified; I25.2 Old myocardial infarction; I11.0 Hypertensive heart disease with heart failure; I50.30 Unspecified diastolic (congestive) heart failure
CPT/HCPCS: 71046; 80053; 83880; 84484; 85025; 93005; 93010

== ENCOUNTER 2023-11-10 08:10 | Day surgery (SDC) | payer OTHER ==
[~2023-11-10] VITALS: Ht 170.2 cm; Wt 98.7 kg
--- NOTE | 2023-11-10 08:36 | NUR ---
11/10/23 0836 Jacquelin Shen AT 0813 PLEDGET AT 0848
[2023-11-10] MEDS ORDERED: TORSE20 PO (08:41)
[2023-11-10 09:48] VITALS: BP 110/55
--- NOTE | 2023-11-10 10:21 | NUR ---
11/10/23 1021 Francesco Morse IV REMOVED INTACT. SITE WNL.
== END 2023-11-10 10:20 | disposition home or self-care (01) ==
LOC: ORSCSDS 08:10
PROVIDERS: Student in an Organized Health Care Education/Training Program
PROC: 08RK3JZ Replacement of Left Lens with Synthetic Substitute, Percutaneous Approach (ICD-10-PCS; principal; 2023-11-10 09:30)
DX: E11.36 Type 2 diabetes mellitus with diabetic cataract (principal); H25.13 Age-related nuclear cataract, bilateral; H21.81 Floppy iris syndrome; I48.91 Unspecified atrial fibrillation; J44.9 Chronic obstructive pulmonary disease, unspecified; I10 Essential (primary) hypertension; E03.9 Hypothyroidism, unspecified; Z87.891 Personal history of nicotine dependence; E78.5 Hyperlipidemia, unspecified; Z68.34 Body mass index [BMI] 34.0-34.9, adult; Z79.01 Long term (current) use of anticoagulants; Z79.84 Long term (current) use of oral hypoglycemic drugs; Z79.899 Other long term (current) drug therapy
CPT/HCPCS: 82947; J2250; J3010; J7040; V2632

== ENCOUNTER 2023-11-24 07:59 | Day surgery (SDC) | payer OTHER ==
[~2023-11-24] VITALS: Ht 167.6 cm; Wt 99.0 kg
[~2023-11-24 07:59] MED LIST changes: -Amiodarone HCl200 MG PO; +Balanced Salt Epinephrine Irrigation Solution 500 mL IR SCH; +CALCIUM PO; +LEVOTHYROXINE50 MC9 PO; -LEVSOD25 PO; +Lidocaine HCl/Pf 1% 5 ML VIAL XX SCH; -METO50ER PO; +MULTIPLE VITAM1 EACH PO; +Moxifloxacin HCL 0.5 MG/0.1 ML 0.4MLSYR RIGHTEYE SCH; +NS 500 ML IV ONE; -PANT40 PO; +PHENYLEPHRINE\\TROPICAMIDE\\TETRACAINE OPHTHALMIC DILATING SOLN RIGHTEYE PRN; +PROTONIX4010 PO; +Povidone-Iodine 450 DROP/30 ML Solution ONE; +Povidone-Iodine 450 DROP/30 ML Solution RIGHTEYE SCH; +TORSE20 PO; +VITAMIN PO; +Vitamin D1000 UNI1 PO
[2023-11-24] MEDS ORDERED: NS 500 ML IV ONE (08:53)
[2023-11-24] MEDS ORDERED: Midazolam HCl 1MG / ML 2ML Vial ONE ×2 (09:01→09:34)
[2023-11-24] MEDS ORDERED: Tetracaine HCl 0.5% Opth Soln 15 ml XX ONE (09:32)
[2023-11-24 10:00] VITALS: BP 113/51
== END 2023-11-24 10:18 | disposition home or self-care (01) ==
LOC: ORSCSDS 07:59
PROVIDERS: Student in an Organized Health Care Education/Training Program
PROC: 08RJ3JZ Replacement of Right Lens with Synthetic Substitute, Percutaneous Approach (ICD-10-PCS; principal; 2023-11-24 09:30)
DX: E11.36 Type 2 diabetes mellitus with diabetic cataract (principal); H25.11 Age-related nuclear cataract, right eye; H21.81 Floppy iris syndrome; Z96.1 Presence of intraocular lens; I48.91 Unspecified atrial fibrillation; I10 Essential (primary) hypertension; Z87.891 Personal history of nicotine dependence; E78.5 Hyperlipidemia, unspecified; E03.9 Hypothyroidism, unspecified; J44.9 Chronic obstructive pulmonary disease, unspecified; Z79.84 Long term (current) use of oral hypoglycemic drugs; Z79.899 Other long term (current) drug therapy
CPT/HCPCS: 82947; J2250; J7040; V2632

== ENCOUNTER 2024-03-07 03:43 | Observation (INO) | payer OTHER ==
[2024-03-07] VITALS (8 sets, daily range): BP systolic 102–121; BP diastolic 44–59
[~2024-03-07] VITALS: Ht 167.6 cm; Wt 100.5 kg
[~2024-03-07 03:43] MED LIST changes: -Balanced Salt Epinephrine Irrigation Solution 500 mL IR SCH; -Lidocaine HCl/Pf 1% 5 ML VIAL XX SCH; -Moxifloxacin HCL 0.5 MG/0.1 ML 0.4MLSYR RIGHTEYE SCH; -NS 500 ML IV ONE; -PHENYLEPHRINE\\TROPICAMIDE\\TETRACAINE OPHTHALMIC DILATING SOLN RIGHTEYE PRN; -Povidone-Iodine 450 DROP/30 ML Solution ONE; -Povidone-Iodine 450 DROP/30 ML Solution RIGHTEYE SCH
[2024-03-07 04:14] LABS: BASOPHILS ABSOLUTE AUTO 0.03 K/mm3 (0.00-0.23); BASOPHILS PERCENT AUTO 0 % (0-2); EOSINOPHILS ABSOLUTE AUTO 0.21 K/mm3 (0.00-0.68); EOSINOPHILS PERCENT AUTO 3 % (0-6); Hematocrit 18.5 % (37.0-53.0); IMMATURE GRAN ABSOLUTE AUTO 0.06 K/mm3 (0.00-0.10); IMMATURE GRAN PERCENT AUTO 1 % (0-1); LYMPHOCYTES ABSOLUTE AUTO 1.12 K/mm3 (0.84-5.20); LYMPHOCYTES PERCENT AUTO 16 % (21-46); MONOCYTES ABSOLUTE AUTO 0.53 K/mm3 (0.16-1.47); MONOCYTES PERCENT AUTO 7 % (4-13); Mean Corpuscular HGB 26.9 pg (26.0-34.0); Mean Corpuscular HGB Conc 28.1 g/dL (31.5-36.5); Mean Corpuscular Volume 96 fL (80-100); Mean Platelet Volume 10.3 fL (9.1-12.4); NEUTROPHILS ABSOLUTE AUTO 5.23 K/mm3 (1.96-9.15); NEUTROPHILS PERCENT AUTO 73 % (41-73); NRBC ABSOLUTE 0.11 K/mm3 (0.00-0.02); NRBC Auto 1.5 /100 WBC (0.0-0.2); Platelet Count 192 K/mm3 (150-400); RDW Coefficient Variation 20.1 % (11.7-14.2); RDW Standard Deviation 69.6 fL (35.1-46.3); Red Blood Cell Count 1.93 M/mm3 (4.30-5.90); White Blood Cell Count 7.18 K/mm3 (4.00-11.30)
[2024-03-07 04:18] LABS: Hemoglobin 5.2 g/dL (13.5-17.5)
[2024-03-07] MEDS ORDERED: Human Prothrombin Complx(Pcc) 2,000 UNIT in Water For Injection,Sterile 80 ML IV ONE (04:25)
[2024-03-07 04:34] LABS: Albumin, Blood 3.4 g/dL (3.4-5.0); Albumin/Globulin Ratio 1.2 (0.8-1.8); Bilirubin, Total 0.6 mg/dL (0.1-1.0); Bun/Creatinine Ratio 15.8 (12.0-20.0); Calcium, Blood 8.4 mg/dL (8.5-10.1); Creatinine, Blood 1.52 mg/dL (0.60-1.20); Globulin, Blood 2.9 g/dL (2.2-4.0); Potassium, Blood 4.3 mmol/L (3.5-5.5); Total Protein, Blood 6.3 g/dL (6.4-8.2)
[2024-03-07] MEDS ORDERED: NS 1,000 ML IV ONE (04:35)
[2024-03-07] MEDS ORDERED: ELIQUIS2.5 MG PO (04:56)
[2024-03-07] MEDS ORDERED: Ondansetron HCl 2 MG / ML 2ML Vial IV PRN (05:50)
[2024-03-07] MEDS ORDERED: Pantoprazole Sodium 40 MG Injection IV SCH (06:00)
--- NOTE | 2024-03-07 08:52 | NUR ---
PRBC TRANSFUSION COMPLETED. Patient arrived from ER at 0810, blood transfusing thru right arm AC. Blood transfusion completed at 0840.
[2024-03-07] MEDS ORDERED: Furosemide 10 MG/ML 4ML Vial IV SCH (09:00)
[2024-03-07] MEDS ORDERED: NS 500 ML IV SCH (10:00)
[2024-03-07 15:09] LABS: Hematocrit 25.2 % (37.0-53.0); Hemoglobin 7.6 g/dL (13.5-17.5)
--- NOTE | 2024-03-07 17:50 | NUR ---
SHIFT SUMMARY PT AOX4, INDEPENDENT WITH THE URINAL AND TO THE BSC. PLEASANT AND COOPERATIVE WITH CARE. HE RECIEVED 2 UNITS OF PRBC THIS SHIFT AND TOLERATED IT WELL. HE STATES HE FEELS MUCH BETTER THAN BEFORE. DAUGHTER WAS AT THE BS AND UPDATED. NO EVENTS PER TELE. NO COMPLAINTS FROM THE PT. CALL LIGHT WITHIN REACH, BED LOCKED AND IN THE LOWEST POSITION. WILL REPORT TO ONCOMING NURSE.
[2024-03-07 21:30] LABS: Hematocrit 25.2 % (37.0-53.0); Hemoglobin 7.7 g/dL (13.5-17.5)
[2024-03-08 03:14] LABS: BASOPHILS ABSOLUTE AUTO 0.04 K/mm3 (0.00-0.23); BASOPHILS PERCENT AUTO 1 % (0-2); EOSINOPHILS ABSOLUTE AUTO 0.34 K/mm3 (0.00-0.68); EOSINOPHILS PERCENT AUTO 5 % (0-6); Hematocrit 25.9 % (37.0-53.0); Hemoglobin 7.9 g/dL (13.5-17.5); IMMATURE GRAN ABSOLUTE AUTO 0.06 K/mm3 (0.00-0.10); IMMATURE GRAN PERCENT AUTO 1 % (0-1); LYMPHOCYTES ABSOLUTE AUTO 1.01 K/mm3 (0.84-5.20); LYMPHOCYTES PERCENT AUTO 14 % (21-46); MONOCYTES ABSOLUTE AUTO 0.47 K/mm3 (0.16-1.47); MONOCYTES PERCENT AUTO 7 % (4-13); Mean Corpuscular HGB 27.2 pg (26.0-34.0); Mean Corpuscular HGB Conc 30.5 g/dL (31.5-36.5); Mean Corpuscular Volume 89 fL (80-100); Mean Platelet Volume 10.2 fL (9.1-12.4); NEUTROPHILS ABSOLUTE AUTO 5.21 K/mm3 (1.96-9.15); NEUTROPHILS PERCENT AUTO 73 % (41-73); NRBC ABSOLUTE 0.08 K/mm3 (0.00-0.02); NRBC Auto 1.1 /100 WBC (0.0-0.2); Platelet Count 174 K/mm3 (150-400); RDW Coefficient Variation 20.7 % (11.7-14.2); RDW Standard Deviation 66.5 fL (35.1-46.3); White Blood Cell Count 7.13 K/mm3 (4.00-11.30)
[2024-03-08 03:31] LABS: Albumin, Blood 3.5 g/dL (3.4-5.0); Albumin/Globulin Ratio 1.2 (0.8-1.8); Bilirubin, Total 1.2 mg/dL (0.1-1.0); Bun/Creatinine Ratio 13.3 (12.0-20.0); Calcium, Blood 8.5 mg/dL (8.5-10.1); Creatinine, Blood 1.35 mg/dL (0.60-1.20); Potassium, Blood 4.5 mmol/L (3.5-5.5); Total Protein, Blood 6.5 g/dL (6.4-8.2)
[2024-03-08 04:20] VITALS: BP 114/45
--- NOTE | 2024-03-08 07:29 | NUR ---
A/O 4, NO C/O PAIN, PT REPORTS LESS SOB SINCE TRANSFUSIONS, TELE NS , [place]RI[place] IV ACCESS PATENT, CAPPED , LABS Q6 DURING SHIFT WITH HEMOGLOBIN W INCREASING TREND, CALL LIGHT WN REACH, FALL PRECAUTIONS MAINTINED. REMAINS ON CLEAR DIET NO REDS. REPORT WITH AM NURSE AT BEDSIDE PT WITH CONCERNS RE HOME MEDS, CBGS AND INHALERS.
[2024-03-08 07:36] VITALS: BP 108/48
--- NOTE | 2024-03-08 07:48 | NUR ---
ASSUMED CARE PATIENT SITTING AT THE EDGE OF THE BED DURING BEDSIDE SHIFT REPORT SPEAKING WITH STAFF. PATIENT DENIES PAIN, REQUESTING CHICKEN BROTH. PATIENT HAS HOME INHALER AT BEDSIDE AND REQUESTING AN ORDER FROM THE DOCTOR. WILL FOLLOW UP.
--- NOTE | 2024-03-08 09:30 | NUR ---
ATTENDING INFORMED OF PATIENT'S REQUEST FOR HOME INHALER AND BLOOD SUGAR CHECKS. ATTENDING AGREEABLE AND STATED PATIENT WILL BE DISCHARGING TODAY WELL.
[2024-03-08 09:49] LABS: Hemoglobin 7.9 g/dL (13.5-17.5)
[2024-03-08] MEDS ORDERED: FURO40 PO (14:38)
[2024-03-08] MEDS ORDERED: PANT40 PO (14:39)
[2024-03-08] MEDS ORDERED: POTCHL20ER PO (14:40)
[2024-03-08] MEDS ORDERED: METO25ER PO (15:28)
[2024-03-08 15:53] LABS: Hematocrit 26.8 % (37.0-53.0); Hemoglobin 8.1 g/dL (13.5-17.5)
--- NOTE | 2024-03-08 16:15 | NUR ---
DISCHARGE PATIENT DISCHARGED VIA WHEELCHAIR AND ASSISTED TO HIS VEHICLE BY STAFF WITH HIS DAUGHTER. ALL BELONGINGS WITH PATIENT. PATIENT PROVIDED EDUCATION FOR DISCHARGE AND INFORMED OF NEW MEDICATION LIST WELL DISCONTINUED MEDICATIONS. INFORMED TO FOLLOW UP WITH HIS PCP WITHIN 1 WEEK AND TO RETURN TO ER IF SYMPTOMS RETURN.
[2024-03-09] MEDS ORDERED: Furosemide 10 MG / ML 2ML Vial IV SCH (09:00)
== END 2024-03-08 15:47 | disposition home or self-care (01) ==
LOC: ER 03:43 → MEDS 03:44
PROVIDERS: Emergency Medicine; ADMIT Internal Medicine
DX: D64.9 Anemia, unspecified (principal); E11.9 Type 2 diabetes mellitus without complications; J44.9 Chronic obstructive pulmonary disease, unspecified; I11.0 Hypertensive heart disease with heart failure; I50.32 Chronic diastolic (congestive) heart failure; E03.9 Hypothyroidism, unspecified; E78.00 Pure hypercholesterolemia, unspecified; I25.10 Atherosclerotic heart disease of native coronary artery without angina pectoris; I25.2 Old myocardial infarction; I48.91 Unspecified atrial fibrillation; K74.60 Unspecified cirrhosis of liver; K29.70 Gastritis, unspecified, without bleeding; I35.0 Nonrheumatic aortic (valve) stenosis; Z79.01 Long term (current) use of anticoagulants; Z79.84 Long term (current) use of oral hypoglycemic drugs; Z79.899 Other long term (current) drug therapy; Z88.8 Allergy status to other drugs, medicaments and biological substances
CPT/HCPCS: 36415; 36430; 71046; 80053; 82947; 83880; 84484; 85014; 85018; 85025; 86850; 86900; 86901; 86923; 93005; 93010; 96374; 96375; 96376; 99285-25; C9113; G0378; J1940; J7030; P9016; Q9967

== ENCOUNTER 2024-10-27 20:08 | Observation (INO) | payer OTHER ==
[~2024-10-27] VITALS: Ht 167.6 cm; Wt 97.0 kg
[~2024-10-27 20:08] MED LIST changes: -Crestor20 MG PO; +Crestor40 MG PO; +ELIQUIS2.5 MG PO; +METO25ER PO; +PANT40 PO; +POTCHL20ER PO
[2024-10-27 21:17] LABS: BASOPHILS ABSOLUTE AUTO 0.07 K/mm3 (0.00-0.23); BASOPHILS PERCENT AUTO 1 % (0-2); EOSINOPHILS ABSOLUTE AUTO 0.29 K/mm3 (0.00-0.68); EOSINOPHILS PERCENT AUTO 3 % (0-6); Hematocrit 26.7 % (37.0-53.0); Hemoglobin 8.8 g/dL (13.5-17.5); IMMATURE GRAN ABSOLUTE AUTO 0.07 K/mm3 (0.00-0.10); IMMATURE GRAN PERCENT AUTO 1 % (0-1); LYMPHOCYTES ABSOLUTE AUTO 1.41 K/mm3 (0.84-5.20); LYMPHOCYTES PERCENT AUTO 13 % (21-46); MONOCYTES ABSOLUTE AUTO 0.67 K/mm3 (0.16-1.47); MONOCYTES PERCENT AUTO 6 % (4-13); Mean Corpuscular HGB 34.4 pg (26.0-34.0); Mean Corpuscular Volume 104 fL (80-100); NEUTROPHILS ABSOLUTE AUTO 8.68 K/mm3 (1.96-9.15); NEUTROPHILS PERCENT AUTO 78 % (41-73); NRBC ABSOLUTE 0.09 K/mm3 (0.00-0.02); NRBC Auto 0.8 /100 WBC (0.0-0.2); Platelet Count 197 K/mm3 (150-400); RDW Coefficient Variation 16.4 % (11.7-14.2); RDW Standard Deviation 62.3 fL (35.1-46.3); Red Blood Cell Count 2.56 M/mm3 (4.30-5.90); White Blood Cell Count 11.19 K/mm3 (4.00-11.30)
[2024-10-27 21:37] LABS: Albumin, Blood 3.6 g/dL (3.4-5.0); Albumin/Globulin Ratio 1.2 (0.8-1.8); Bilirubin, Total 0.6 mg/dL (0.1-1.0); Bun/Creatinine Ratio 37.4 (12.0-20.0); Calcium, Blood 9.1 mg/dL (8.5-10.1); Creatinine, Blood 1.47 mg/dL (0.60-1.20); Globulin, Blood 3.1 g/dL (2.2-4.0); Potassium, Blood 4.8 mmol/L (3.5-5.5); Total Protein, Blood 6.7 g/dL (6.4-8.2)
[2024-10-27] MEDS ORDERED: Famotidine 10 MG/ML 2ML Vial IV ONE (21:50)
[2024-10-27] MEDS ORDERED: FLU VACC TS2024-25(6MOS UP)/PF 45 MCG/0.5 ML SYRINGE IM ONE (23:45)
[2024-10-27] MEDS ORDERED: Ondansetron HCl 2 MG / ML 2ML Vial IV PRN (23:45)
[2024-10-28] MEDS ORDERED: Pantoprazole Sodium 40 MG Injection IV ONE (00:05)
[2024-10-28 00:33] LABS: Hematocrit 25.6 % (37.0-53.0)
[2024-10-28 00:56] LABS: International Normalized Ratio 1.05; Prothrombin Time Results 11.2 Sec (9.7-11.5)
[2024-10-28] MEDS ORDERED: Albuterol HFA200 ACT/6.7 GM INH INH PRN (02:05)
[2024-10-28] MEDS ORDERED: Tiotropium Bromide 2.5 MCG/ACT MIST INHAL (10 ACT/4 GM) INH SCH (02:05)
[2024-10-28 04:58] LABS: BASOPHILS ABSOLUTE AUTO 0.08 K/mm3 (0.00-0.23); BASOPHILS PERCENT AUTO 1 % (0-2); EOSINOPHILS ABSOLUTE AUTO 0.35 K/mm3 (0.00-0.68); EOSINOPHILS PERCENT AUTO 3 % (0-6); Hematocrit 25.9 % (37.0-53.0); Hemoglobin 8.3 g/dL (13.5-17.5); IMMATURE GRAN ABSOLUTE AUTO 0.07 K/mm3 (0.00-0.10); IMMATURE GRAN PERCENT AUTO 1 % (0-1); LYMPHOCYTES ABSOLUTE AUTO 1.96 K/mm3 (0.84-5.20); LYMPHOCYTES PERCENT AUTO 19 % (21-46); MONOCYTES ABSOLUTE AUTO 0.59 K/mm3 (0.16-1.47); MONOCYTES PERCENT AUTO 6 % (4-13); Mean Corpuscular HGB 33.5 pg (26.0-34.0); Mean Corpuscular Volume 104 fL (80-100); Mean Platelet Volume 10.1 fL (9.1-12.4); NEUTROPHILS ABSOLUTE AUTO 7.42 K/mm3 (1.96-9.15); NEUTROPHILS PERCENT AUTO 71 % (41-73); NRBC ABSOLUTE 0.05 K/mm3 (0.00-0.02); NRBC Auto 0.5 /100 WBC (0.0-0.2); Platelet Count 188 K/mm3 (150-400); RDW Coefficient Variation 16.5 % (11.7-14.2); RDW Standard Deviation 62.8 fL (35.1-46.3); Red Blood Cell Count 2.48 M/mm3 (4.30-5.90); White Blood Cell Count 10.47 K/mm3 (4.00-11.30)
[2024-10-28 05:22] LABS: Albumin, Blood 3.5 g/dL (3.4-5.0); Albumin/Globulin Ratio 1.2 (0.8-1.8); Bilirubin, Total 0.7 mg/dL (0.1-1.0); Bun/Creatinine Ratio 36.6 (12.0-20.0); Calcium, Blood 8.9 mg/dL (8.5-10.1); Creatinine, Blood 1.34 mg/dL (0.60-1.20); Globulin, Blood 2.9 g/dL (2.2-4.0); Magnesium, Blood 2.1 mg/dL (1.6-2.4); Potassium, Blood 4.5 mmol/L (3.5-5.5); Total Protein, Blood 6.4 g/dL (6.4-8.2)
[2024-10-28] MEDS ORDERED: Levothyroxine Sodium 0.05 MG Tab PO SCH (06:00)
[2024-10-28] MEDS ORDERED: Pantoprazole Sodium 40 MG Injection IV SCH (06:00)
[2024-10-28] MEDS ORDERED: Insulin Regular 100 UNIT/ML 10ML Vial SC SCH ×2 (07:30→16:30)
[2024-10-28] MEDS ORDERED: Furosemide 40 MG Tab PO SCH (09:00)
[2024-10-28] MEDS ORDERED: Potassium Chloride 20 MEQ TabCR PO SCH (09:00)
[2024-10-28] MEDS ORDERED: Rosuvastatin Calcium 10 MG Tab PO SCH (09:00)
[2024-10-28] MEDS ORDERED: Lisinopril 5 MG Tab PO SCH (09:00)
[2024-10-28] MEDS ORDERED: Empagliflozin 25 MG TAB PO SCH (09:00)
[2024-10-28] MEDS ORDERED: Amiodarone HCl 200 MG Tab PO SCH (09:00)
[2024-10-28] MEDS ORDERED: Metoprolol Succinate 25 MG TABCR PO SCH (09:00)
[2024-10-28 11:08] LABS: Hematocrit 25.4 % (37.0-53.0)
[2024-10-28 12:33] VITALS: BP 145/66
[2024-10-28 14:01] LABS: Hematocrit 27.3 % (37.0-53.0); Hemoglobin 8.7 g/dL (13.5-17.5)
[2024-10-28 16:20] VITALS: BP 130/45
[2024-10-28] MEDS ORDERED: Insulin Human Lispro 100 Units/ML 3ML Syringe SC SCH (16:30)
--- NOTE | 2024-10-28 18:15 | NUR ---
SHIFT NOTE: PT ADMITTED FROM ER AT APPROX 1225. HE IS A/OX4 ABLE TO MAKE HIS NEEDS KNOWN. HE IS IND IN ROOM WITH ALL ADLS. HE IS ON TELE IN NSR WITH HX OF AFIB. HE IS ON RA WITH NO SOB. HE HAS HAD 1 LOOSE BLACK BM SINCE ARRIVAL TO THE UNIT. CONTINUING TO MONITOR
[2024-10-28 19:33] VITALS: BP 125/54
[2024-10-28 19:43] LABS: Hematocrit 26.5 % (37.0-53.0); Hemoglobin 8.4 g/dL (13.5-17.5)
[2024-10-29 02:27] LABS: Hematocrit 26.1 % (37.0-53.0); Hemoglobin 8.5 g/dL (13.5-17.5)
[2024-10-29 03:19] VITALS: BP 125/57
--- NOTE | 2024-10-29 05:26 | NUR ---
SHIFT SUMMARY PT AWAKE, SITTING UP ON SIDE OF BED AT START OF SHIFT. PT HUNGRY AND DIDN'T GET HIS DINNER TRAY, SO THIS RN GOT HIM SOMETHING TO EAT FROM PANTRY. APPROX 0009, PT WENT TO SLEEP. PT PLEASANT AND COOPERATVE WITH CARE.
--- NOTE | 2024-10-29 05:49 | NUR ---
APPROX 2229, PT HAD MED. LOOSE BM, BUT STATED THERE WAS NO BLACK/TARRY BLOOD IN STOOL THIS TIME.
[2024-10-29 07:20] VITALS: BP 126/59
[2024-10-29] MEDS ORDERED: Misc. Inhaler INH SCH (09:00)
--- NOTE | 2024-10-29 15:45 | NUR ---
DISCHARGE SUMMARY PATIENT DISCHARGED THIS SHIFT, DRIVING SELF. NO FURTHER MELENA NOTED. DISCHARGE PACKET GIVEN AND REVIEWED, QUESTIONS ANSWERED, VERBALIZED UNDERSTANDING. NO NEW MEDS. DECLINED TO TAKE 2 MEDS THIS AM, STATED HE TAKES THEM IN THE PM.
== END 2024-10-29 15:23 | disposition home or self-care (01) ==
LOC: ER 20:08 → ERHOLD 20:09 → MEDS 10-28 12:29
PROVIDERS: Family Medicine; Student in an Organized Health Care Education/Training Program; ADMIT Student in an Organized Health Care Education/Training Program
DX: K92.1 Melena (principal); D64.9 Anemia, unspecified; K52.9 Noninfective gastroenteritis and colitis, unspecified; I48.91 Unspecified atrial fibrillation; E11.9 Type 2 diabetes mellitus without complications; I11.0 Hypertensive heart disease with heart failure; I50.32 Chronic diastolic (congestive) heart failure; I25.10 Atherosclerotic heart disease of native coronary artery without angina pectoris; I25.2 Old myocardial infarction; J44.9 Chronic obstructive pulmonary disease, unspecified; E03.9 Hypothyroidism, unspecified; E78.00 Pure hypercholesterolemia, unspecified; N40.0 Benign prostatic hyperplasia without lower urinary tract symptoms; Z79.890 Hormone replacement therapy; Z79.84 Long term (current) use of oral hypoglycemic drugs; Z79.899 Other long term (current) drug therapy
CPT/HCPCS: 36415; 74177; 80053; 82947; 83605; 83735; 85014; 85018; 85025; 85610; 86850; 86900; 86901; 94760; 96374; 96375; 96376; 99285-25; A9270; G0378; J1815; J2470; Q9967